=== PATIENT | female | born 1950 | race African-American/Black ===

== ENCOUNTER 2023-03-17 14:20 | Outpatient (NON) | payer MEDICARE, MEDICAID, SELFPAY ==
[2023-03-21 09:04] LABS: Fecal Fat, Ql Abnormal (Normal)
[2023-03-24 21:08] LABS: Pancreatic Elastase, Stool >500 mcg/g
== END 2023-03-17 14:21 | disposition home or self-care (01) ==
LOC: ANHLAB 14:20
PROVIDERS: PCP Nurse Practitioner Family; Visit Provider Nurse Practitioner Family
DX: R19.7 Diarrhea, unspecified (principal)
CPT/HCPCS: 82653; 82705; 87045; 87177; 87209; 87427; 87449

== ENCOUNTER 2023-10-18 14:52 | Inpatient (IN) | payer MEDICARE, MEDICAID, SELFPAY ==
[2023-10-18] VITALS (13 sets, daily range): BP systolic 86–126; BP diastolic 57–82; PULSE 75–88; RESP 14–24; TEMP 36.3–36.9; O2SAT 98–100; BMI 24.6
--- NOTE | ~2023-10-18 | CT_ITS ---
EXAMINATION: CT chest abdomen pelvis w con DATE: 10/19/2023 10:27 INDICATION: Abdominal distention. Severe anemia. TECHNIQUE: Computed tomography (CT) of the chest, abdomen, and pelvis was performed with 100 mL Omnip aque 350 intravenous contrast. Automated exposure control and iterative reconstruction technique were employed. The dose-length product was 555.27 mGy-cm. COMPARISON: None FINDINGS: CHEST CT: There is mild pulmonary edema. There is mild atelectasis bilaterally. Calcified right lung nodules an d calcified right hilar lymph nodes are consistent with old granulomatous disease. There are small pl eural effusions. The heart size is normal. There are coronary artery calcifications. There is a trace pericardial effusion. There is severe thoracic spondylosis. ABDOMEN/PELVIS CT: Calcifications in the liver and spleen are consistent with old granulomatous disease. The gallbladder is decompressed. Gallbladder wall thickening is seen, likely interstitial edema. The pancreas, adren al glands, and left kidney are normal. There is an 18 mm cyst in right kidney. There is diverticulosi s of the colon without evidence of diverticulitis. The appendix measures 7 mm in diameter. There is c alcified atherosclerosis of the aorta and many of the other arteries. There are no pathologically enl arged lymph nodes. There is trace ascites. There are old healed right rib fractures. There is moderat e lumbar spondylosis. IMPRESSION: 1. Mild pulmonary edema. 2. Small pleural effusions. 3. Appendiceal diameter of 7 mm, which is indeterminate for appendicitis and may be normal. Correlate with physical exam. Reviewed, dictated and finalized at location A. ICAL DENTAL TECHNICIAN IMPRESSION: 1. Mild pulmonary edema. 2. Small pleural effusions. 3. Appendiceal diameter of 7 mm, which is indeterminate for appendicitis and ma y be normal. Correlate with physical exam.
--- NOTE | ~2023-10-18 | XR_ITS ---
EXAMINATION: XR chest 1V portable Exam Date/Time: 10/18/2023 15:38 E TAILER HISTORY: weakness, low bp Comparison: None. RESULT: Lines, tubes, and devices: None. Lungs and pleura: Senescent changes, otherwise clear. Cardiomediastinal silhouette: Stable. Other: No acute osseous or upper abdominal finding. IMPRESSION: No acute cardiopulmonary process. Reviewed, dictated and finalized at location K. E TAILER
--- NOTE | 2023-10-18 15:16 | ECG_ITS ---
Measurements Intervals [place] Rate: 80 P: -5 [place]: 157 QRS: -4 QRSD: 89 T: 4 QT: 377 QTc: 435 Interpretive Statements SINUS RHYTHM NORMAL ECG NO PREVIOUS ECG AVAILABLE FOR COMPARISON Electronically Signed On 10-18-2023 18:29:28 [employer] CLEANER by Linus Talamantes M.D.
[2023-10-18] MEDS: SODIUM CHLORIDE 0.9% IV 1,000 ML 999 ML IV CONT ×2 (15:27→15:44)
[2023-10-18 15:29] LABS: Basophils Percent Auto 0.5 % (0.2-1.2); Eosinophils Absolute Auto 0.1 K/mm3 (0-0.3); Eosinophils Percent Auto 0.8 % (0-4.4); Immature Granulocyte Absolute 0.03 K/mm3 (0.00-0.031); Immature Granulocyte Percent A 0.5 % (0-0.5); Lymphocytes Absolute Auto 1.43 K/mm3 (0.9-3.2); Lymphocytes Percent Auto 24.1 % (18.3-44.2); Mean Corpuscular HGB Conc 26.6 g/dl (32-36); Mean Corpuscular Hemoglobin 20.7 pg (26-34); Monocytes Absolute Auto 0.8 K/mm3 (0.1-0.6); Neutrophils Absolute Auto 3.6 K/mm3 (1.3-6.7); Neutrophils Percent Auto 61.1 % (45.5-73.1); Nucleated Red Blood Cells Absolute Auto 0.1 K/mm3 (0.0-0.012); Platelet Count Result 341 k/mm3 (150-375); Red Blood Count 2.27 M/mm3 (4.2-5.4); Red Cell Distribution Width 18.4 % (11.5-14.5); White Blood Count 5.9 K/mm3 (4.5-10.0)
[2023-10-18 15:40] LABS: Alanine Aminotransferase 74 U/L (6-35); Albumin Level 3.9 g/dL (3.5-5.1); Alkaline Phosphatase 64 U/L (38-126); Anion Gap 9 mmol/L (8-16); Aspartate Amino Transferase 85 U/L (14-36); Bilirubin,Total 0.5 mg/dL (0.2-1.3); Blood Urea Nitrogen 19 mg/dL (7-17); Calcium 9.1 mg/dL (8.4-10.2); Carbon Dioxide 23 mmol/L (22-30); Chloride 107 mmol/L (98-107); Estimated CRCL calculation 46 ml/min; Estimated Glomerular Filt Rate > 60; Glucose 115 mg/dL (65-110); Potassium 3.6 mmol/L (3.4-5.0); Sodium 139 mmol/L (137-145)
[2023-10-18 15:43] LABS: Hematocrit 17.7 % (37.0-47.0); Hemoglobin 4.7 g/dL (12.0-15.0)
[2023-10-18 15:44] LABS: Anisocytosis 1+ (NORMAL); Hypochromasia 1+ (NORMAL); Ovalocytes 1+ (NORMAL); Platelet Estimate Adequate (Adequate); Schistocytes None Seen (NORMAL)
--- NOTE | 2023-10-18 15:46 | ED.GENADULT ---
HPI - General Adult General Chief complaint: Recheck/Abnormal Lab/Rx Stated complaint: low BP Time Seen by Provider: 10/18/23 15:31 History of Present Illness HPI narrative: 73-year-old female presents to the emergency department for evaluation of cough congestion and increased generalized weakness. Patient denies any current GI bleed denies any diarrhea. Patient states over the last few days she has had increased cough and congestion and generalized weakness. Patient describes lightheaded and dizziness. Patient does have a prior history GI bleed, patient is currently on Xarelto for prior history of CVA and atrial fibrillation. Related Data Home Medications Medication Instructions Recorded Confirmed lisinopril 10 mg tablet 10 mg PO DAILY 09/22/19 10/18/23 apixaban 2.5 mg tablet (Eliquis) 2.5 mg PO BID 03/12/23 10/18/23 atenolol 25 mg tablet 25 mg PO DAILY 03/12/23 10/18/23 vibegron 75 mg tablet (Gemtesa) 75 mg PO HS 03/12/23 10/18/23 colestipol 1 gram tablet 1 g PO 1700 10/18/23 10/18/23 pantoprazole 40 mg tablet,delayed 40 mg PO DAILY 10/18/23 10/18/23 release zolpidem 5 mg tablet 5 mg PO HS 10/18/23 10/18/23 Allergies Allergy/AdvReac Type Severity Reaction Status Date / Time No Known Allergies Allergy Verified 10/18/23 15:11 Review of Systems Review of Systems: All systems reviewed & are unremarkable except as noted in HPI and below PMFSH Past Medical History Medical History (Updated 10/18/23 @ 19:10 by Justino Cantu MD) Cerebrovascular accident (10/25/22) Residual right sided weakness. Chronic anticoagulation Hypertension Paroxysmal atrial fibrillation Social History Social History (Updated 10/18/23 @ 18:38 by Carmella Saldaña PA-C) Social History: Surrogate medical decision maker: Code status: Smoking status: Never smoker Alcohol intake: current Drinks per week: 3 Alcohol use details: socially Substance use: never Substance use type: does not use Do You Feel Safe in your Home?: Yes Lack of Transportation: No Lack of Food: Never True Current Housing: I Have Housing Concerned About Future Housing: No Difficulty Paying Gas/Electric Bills: No Difficulty Paying for Meds: No Currently Unemployed: No Education: High School Diploma/GED Difficulty w/ Childcare or Family Care: No Spiritual care concerns: No Exam Narrative: APPEARANCE: Well appearing, no pain, no distress, well-nourished. HEAD: normocephalic, atraumatic. EYES: PERRLA/EOMI, pale conjunctiva NOSE: Normal no drainage EARS:TMS clear with good light reflex. THROAT: Pharynx clear, no exudate. NECK: Supple. No adenopathy, no masses. RESPIRATORY: Airway patent, respirations nonlabored. Clear to auscultation bilaterally, no rales, rhonchi, wheezing. CARDIOVASCULAR: Regular rate and rhythm without murmurs rubs or gallops. ABDOMINAL: Soft, nontender, nondistended, normal bowel sounds Rectal exam: Hemoccult negative MUSCULOSKELETAL: Moves all extremities. Strength/ROM intact, No edema, No calf tenderness. NEURO: Alert. Cranial nerves II through XII intact. Good gait. Good coordination SKIN: Pale conjunctivae Course Course Emergency Course: Patient was at bedded for transfusion and anemia workup Vital Signs Vital signs: Vital Signs Temperature 97.7 F 10/18/23 14:57 Pulse Rate 88 10/18/23 14:57 Respiratory Rate 16 10/18/23 14:57 Blood Pressure 86/57 L 10/18/23 14:57 Pulse Oximetry 98 10/18/23 14:57 Temperature 97.4 F L 10/18/23 19:03 Pulse Rate 81 10/18/23 19:03 Respiratory Rate 14 10/18/23 19:03 Blood Pressure 126/69 10/18/23 19:03 Pulse Oximetry 100 10/18/23 19:03 Medical Decision Making [facility] Narrative Medical decision making narrative: 73-year-old female presenting ED for evaluation increased generalized weakness cough and lightheaded and dizziness. Patient was afebrile with no leukocytosis but patient did have a hemoglobin of 4.7. Pa
[2023-10-18 15:54] LABS: Immature Reticulocyte Fraction 4.6 % (3.0-15.9); Reticulocyte Hemoglobin Conten 13.9 pg (28.2-35.7); Reticulocyte Percent 1.26 % (0.7-4.3); Reticulocytes Absolute 0.03 M/mm3 (0.02-0.1)
[2023-10-18 16:07] LABS: Iron 27 ug/dL (37-170)
[2023-10-18 16:16] LABS: Percent Iron Saturation 5 % (20-50)
[2023-10-18 16:41] LABS: Influenza A QL RT-PCR Negative (Negative); Influenza B QL RT-PCR Negative (Negative); RSV RNA, RT-PCR Negative (Negative); SARS-CoV-2 RNA PCR Negative (Negative)
[2023-10-18 16:42] LABS: Ferritin 4.21 ng/mL (11.1-264)
[2023-10-18] MEDS: SODIUM CHLORIDE 0.9% IV 250 ML 30 ML IV CONT (16:55)
[2023-10-18] MEDS: TUBING, BLOOD SET 1 EACH XX (16:56)
[2023-10-18 17:13] LABS: Folic Acid 17.3 ng/mL (2.76->20)
--- NOTE | 2023-10-18 18:31 | ADMGEN ---
This patient, Kaye Bolaños, was admitted to IMU Room 201-01. Patient/family oriented to hospital policies and general routines including ID bracelet, bed and alarms, visiting hours, pain management, procedures, bathroom and other care routines, personal items, smoking policy, room service/diet, and visiting hours. Information on how to activate the Rapid Response Team has been discussed. Patient/Family are encouraged to report perceived risks to care and to ask questions if they do not understand what they are told or what they should do.
--- NOTE | 2023-10-18 18:32 | PM.IMHP ---
H&P: HPI History of Present Illness Date/Time: 10/18/23 19:30 Chief Complaint: Dizziness and low blood pressure. Narrative: This is a 73-year-old female with history of stroke, hypertension, and paroxysmal atrial fibrillation on anticoagulation who presented to the emergency department for evaluation of dizziness and low blood pressure. The patient provides the following history. She has not been feeling well for couple of weeks with vague symptoms including fatigue, generalized weakness, dry cough, and dizziness. Today she took her blood pressure and reports that it was in the 80s systolic and she came in for evaluation. On arrival to the ED her blood pressure was 86/57. Labs were significant for hemoglobin and hematocrit 4.7 and 17.7% respectively. Stool was Hemoccult negative on rectal exam per ED physician. Chest x-ray showed no acute findings and she tested negative for influenza, RSV, and COVID. 2 units packed red blood cells were ordered and she is being admitted in this setting for further workup and transfusion. With further questioning she mentions that she was hospitalized at [facility] a couple of months ago with dark stools at which time she had upper and lower endoscopy which were apparently unrevealing. She had previously been on Eliquis and was transition to Xarelto and her stool seemed to have cleared up. She has not noticed any blood in her stool and she specifically denies epigastric and abdominal pain, bloating, belching, hematemesis, melena, hematochezia, and hematuria. She also denies NSAID use. Review of Systems Review of Systems: Twelve systems were reviewed. No syncope. She denies fever, chills, sweats, sinus congestion, and sore throat. Her cough is dry and nonproductive. No chest or pleuritic pain. Mild shortness of breath with activity. Except as documented, all other systems were reviewed and are negative. [facility] Past Medical History Medical History (Updated 10/18/23 @ 23:41 by Carmella Saldaña PA-C) Arthritis Cerebrovascular accident (10/25/22) Mild right sided weakness. Chronic anticoagulation Hypertension Irritable bowel syndrome Obstructive sleep apnea Does not wear CPAP. Paroxysmal atrial fibrillation Surgical History Surgical History (Updated 10/18/23 @ 23:41 by Carmella Saldaña PA-C) History of cataract extraction History of colonoscopy History of esophagogastroduodenoscopy Family History Family History (Updated 10/18/23 @ 23:41 by Carmella Saldaña PA-C) Other Family history non-contributory Social History Social History (Updated 10/18/23 @ 22:49 by Carmella Saldaña PA-C) Social History: Surrogate medical decision maker: Galen Shine, son. Code status: Full code. Smoking status: Never smoker Alcohol intake: current Drinks per week: 3 Alcohol use details: socially Substance use: never Substance use type: does not use Do You Feel Safe in your Home?: Yes Lack of Transportation: No Lack of Food: Never True Current Housing: I Have Housing Concerned About Future Housing: No Difficulty Paying Gas/Electric Bills: No Difficulty Paying for Meds: No Currently Unemployed: No Education: High School Diploma/GED Difficulty w/ Childcare or Family Care: No Spiritual care concerns: No Meds Home Medications and Allergies Home Medications Medication Instructions Recorded Confirmed Type lisinopril 10 mg tablet 10 mg PO DAILY 09/22/19 10/18/23 History apixaban 2.5 mg tablet (Eliquis) 2.5 mg PO BID 03/12/23 10/18/23 History atenolol 25 mg tablet 25 mg PO DAILY 03/12/23 10/18/23 History colestipol 1 gram tablet 1 g PO 1700 10/18/23 10/18/23 History pantoprazole 40 mg tablet,delayed 40 mg PO DAILY 10/18/23 10/18/23 History release vibegron 75 mg tablet (Gemtesa) 75 mg PO HS 10/18/23 10/18/23 History zolpidem 5 mg tablet 5 mg PO HS 10/18/23 10/18/23 History Allergies Allergy/AdvReac Type Severity Reaction Status Riaz
[2023-10-18] MEDS: TUBING, BLOOD PLUM PUMP TUBING 1 EACH XX (19:05)
[2023-10-18] MEDS: SODIUM CHLORIDE 0.9% IV 250 ML 30 ML (19:05)
[2023-10-18 20:26] LABS: NT Pro B Type Natriuretic Pept 1700 pg/mL (19.9-100)
[2023-10-18 23:18] LABS: Hematocrit 21.6 % (37.0-47.0)
[2023-10-18 23:24] LABS: Hemoglobin 6.6 g/dL (12.0-15.0)
[2023-10-18 23:27] LABS: Lactate Dehydrogenase 152 U/L (120-246)
[2023-10-19] VITALS (25 sets, daily range): BP systolic 102–152; BP diastolic 59–94; PULSE 72–132; RESP 18–22; TEMP 36.3–37.2; O2SAT 92–100
--- NOTE | 2023-10-19 | ECHO_ITS ---
Patient Info Name: Kaye Bolaños Age: 73 years : 1950 Gender: Female Ht: 67 in Wt: 155 lbs BSA: 1.83 m2 HR: 125 bpm BP: 121 / 88 mmHg Heart Rhythm: Atrial Fibrillation Technical Quality: Fair Exam Date: 10/19/2023 2:00 PM Exam Location: Echo Lab Patient Status: Outpatient Admit Date: 10/18/2023 Staff Ordering Physician: Shirley Soriano APRN Ticket Collector Or Usher: Attending Provider: Nicholas Styles MD Referring Physician: Bo HUIZAR; Exam Type: CA echo doppler color flow Study Info Indications I50.20 - Unspecified systolic (congestive) heart failure Complete two-dimensional, color flow and Doppler transthoracic echocardiogram is performed. Summary 1. Complete two-dimensional, color flow and Doppler transthoracic echocardiogram is performed. 2. Mild left ventricular hypertrophy with vigorous, hyperdynamic systolic function. 3. Severely dilated left atrium. 4. Trivial MR. 5. Atrial fibrillation. Left Ventricle Left ventricular chamber dimension is normal. Left ventricular systolic function is hyperdynamic, estimated at >70%. There is mild concentric increased left ventricular wall thickness. The left ventricular diastolic function is indeterminate. Right Ventricle Right ventricular chamber dimension is normal. Left Atria Left atrial chamber dimension is severely enlarged. Right Atria Right atrial chamber dimension is normal. Aortic Valve The aortic valve is normal. Pulmonic Valve The pulmonic valve is not well visualized. Mitral Valve The mitral valve has normal leaflets. There is trace mitral valve regurgitation. The mitral valve annulus is mildly calcified. Tricuspid Valve The tricuspid valve leaflets are normal. There is trace tricuspid valve regurgitation. Pericardium/Pleural The pericardium appears normal. Aorta The aortic root size at the sinus of Valsalva is normal. Left Ventricular Outflow Tract Name Value Normal LVOT 2D LVOT Diameter 2.0 cm LVOT Doppler LVOT Peak Gradient 2 mmHg LVOT Mean Gradient 1 mmHg LVOT VTI 24 cm LVOT VTI/AV VTI Ratio 1.1 LVOT Stroke Volume 73 ml LVOT CO 3.7 l/min LVOT CI 2.0 l/min/m2 Pulmonic Valve Name Value Normal PV Doppler PV Peak Gradient 3 mmHg Tricuspid Valve Name Value Normal TV Regurgitation Doppler TR Peak Velocity 262 cm/s TR Peak Gradient 27 mmHg Aortic Valve Name
[2023-10-19] MEDS: ZOLPIDEM TARTRATE (*CRX) 5 MG TABLET PO ×2 (00:34→20:34)
[2023-10-19 00:40] LABS: Appearance Urine Clear (Clear); Bilirubin Urine Negative (Negative); Blood Urine Negative (Negative); Color Urine Yellow (Yellow); Glucose Urine UA Negative (Negative); Ketones Urine Trace mg/dL (Negative); Leukocyte Esterase Ur Negative LEU/UL (Negative); Nitrate Urine Negative (Negative); Protein Urine Negative (Negative); Specific Grav Ur 1.024 (1.001-1.035); pH Urine 5.5 (5.0-9.0)
[2023-10-19 01:03] LABS: Add Urine Microscopic? NO
[2023-10-19] MEDS: COLESTIPOL HCL 1 GM TABLET PO ×2 (03:59→17:08)
[2023-10-19] MEDS: SODIUM CHLORIDE 0.9% IV 250 ML 30 ML IV CONT (04:02)
[2023-10-19] MEDS: TUBING, BLOOD PLUM PUMP TUBING 1 EACH XX (04:02)
--- NOTE | 2023-10-19 08:57 | PM.IMPN ---
Subjective Date/time seen: 10/19/23 08:57 Interval history: No acute overnight events. Objective Data Vital Signs Vital Signs: Vital Signs - 24 hr 10/18/23 14:57 10/18/23 16:48 10/18/23 17:06 Temperature 97.7 F 97.6 F 97.4 F L Pulse Rate 88 84 78 Respiratory Rate 16 18 14 Blood Pressure 86/57 L 104/76 103/75 Pulse Oximetry 98 99 100 Oxygen Delivery 10/18/23 18:06 10/18/23 18:17 10/18/23 19:03 Temperature 97.8 F 97.4 F L Pulse Rate 79 76 81 Respiratory Rate 22 H 20 14 Blood Pressure 109/82 118/75 126/69 Pulse Oximetry 99 99 100 Oxygen Delivery 10/18/23 18:39 10/18/23 19:20 10/18/23 20:20 Temperature 98.4 F 97.8 F 97.9 F Pulse Rate 80 77 82 Respiratory Rate 24 H 14 18 Blood Pressure 119/70 118/82 111/70 Pulse Oximetry 100 100 100 Oxygen Delivery 10/18/23 20:52 10/18/23 20:00 10/18/23 20:00 Temperature 97.9 F Pulse Rate 82 82 75 Respiratory Rate 18 18 Blood Pressure 110/68 Pulse Oximetry 100 100 Oxygen Delivery Room Air 10/18/23 23:43 10/19/23 00:00 10/18/23 22:00 Temperature 97.9 F Pulse Rate 82 82 76 Respiratory Rate 18 18 Blood Pressure 110/68 Pulse Oximetry 100 100 Oxygen Delivery Room Air 10/19/23 00:00 10/19/23 02:00 10/19/23 03:50 Temperature 97.9 F Pulse Rate 73 73 78 Respiratory Rate 18 Blood Pressure 138/77 Pulse Oximetry 92 Oxygen Delivery 10/19/23 04:00 10/19/23 04:07 10/19/23 04:57 Temperature 98.3 F 97.9 F Pulse Rate 78 73 82 Respiratory Rate 18 20 18 Blood Pressure 140/79 140/79 Pulse Oximetry 92 97 97 Oxygen Delivery Room Air 10/19/23 05:07 10/19/23 04:00 10/19/23 06:00 Temperature 97.3 F L Pulse Rate 82 73 72 Respiratory Rate 18 Blood Pressure 136/70 Pulse Oximetry 97 Oxygen Delivery 10/19/23 07:35 Temperature 98.2 F Pulse Rate 74 Respiratory Rate 20 Blood Pressure 152/91 H Pulse Oximetry 97 Oxygen Delivery Intake/Output Intake/Output: Intake & Output 10/16/23 10/17/23 10/18/23 10/19/23 23:59 23:59 23:59 23:59 Intake Total 2900 900 Output Total 650 Balance 2900 250 Meds/Results Medications: Active Medications Generic Name Dose Route Start Last Admin Trade Name Freq PRN Reason Stop Dose Admin Acetaminophen 650 mg 10/18/23 22:53 Acetaminophen 325 Mg Tablet PO Q6H PRN Mild Pain (1-3) or Fever Atenolol 25 mg 10/19/23 09:00 Atenolol 25 Mg Tablet PO DAILY [facility] Colestipol HCl 1 gm 10/19/23 17:00 Colestipol Hcl 1 Gm Tablet PO 1700 [facility] Ferrous Sulfate 325 mg 10/19/23 21:00 Ferrous Sulfate [address] PO BID [facility] Iron Sucrose 500 mg/ Sodium 275 mls @ 79 mls/hr 10/19/23 09:15 Chloride IVPB 10/19/23 12:43 ONCE ONE Miscellaneous Information 1 each 10/19/23 00:01 Med Rec Order Clarification XX 11/18/23 00:00 CLARIFY [facility] Non-Formulary Medication 75 mg 10/19/23 21:00 Vibegron [Gemtesa] PO 11/18/23 20:59 HS [facility] Pantoprazole Sodium 40 mg 10/19/23 09:00 Pantoprazole 40 Mg Tablet PO BID [facility] Zolpidem Tartrate 5 mg 10/18/23 23:10 10/19/23 00:34 Zolpidem Tartrate (*Crx) 5 Mg Tablet PO 5 mg HS [facility] Administration Radiology Results: ITS Impressions Chest X-Ray 10/18/23 15:44 IMPRESSION: No acute cardiopulmonary process. Labs Labs: Laboratory Results - last 24 hr 10/18/23 10/18/23 10/18/23 15:24 15:24 15:54 WBC 5.9 RBC 2.27 L Hgb 4.7 L* Hct 17.7 L* MCV 78.0 L MCH 20.7 L MCHC 26.6 L RDW 18.4 H Plt Count 341 MPV 11.0 H Immature Gran % (Auto) 0.5 Neut % (Auto) 61.1 Lymph % (Auto) 24.1 [place] % (Auto) 13.0 H Eos % (Auto) 0.8 Baso % (Auto) 0.5 Lymph # (Auto) 1.43 [place] # (Auto) 0.8 H Eos # (Auto) 0.1 Baso # (Auto) 0.0 Abs Immat Gran (auto) 0.03 Absolute Neuts (auto) 3.6 Absolute Nucleated RBC 0.1 H Nucleated RBC % 1.0 H Platelet Estimate Adequate Hypoc
--- NOTE | 2023-10-19 08:59 | P.PNIM_ITS ---
Progress Note: A&P Assessment and Plan (1) Anemia: Code(s): D64.9 - Anemia, unspecified Status: Acute (2) Elevated LFTs: Code(s): R79.89 - Other specified abnormal findings of blood chemistry Status: Acute (3) Paroxysmal atrial fibrillation: Code(s): I48.0 - Paroxysmal atrial fibrillation Status: Acute (4) Hypertension: Code(s): I10 - Essential (primary) hypertension Status: Acute (5) Congestive heart failure: Code(s): I50.9 - Heart failure, unspecified Status: Acute (6) Iron deficiency anemia: Code(s): D50.9 - Iron deficiency anemia, unspecified Status: Acute Plan Anemia * Does not appear to be active bleed but patient does take blood thinners for AFIB and TIA and previous HX of GI bleed * last colonoscopy 03/2023 IBS * hgb 4.6 POA * 3 units PRBC transfused now 8.0 * H&H q6hr * transfused 500mg Iron * PPI b.i.d. * Transfuse hgb <7.0 * GI and Hematology consulted Microcytic iron deficiency anemia * Iron panel * Iron TID * Hematology consult * In 500 mg IV * congestive heart failure New onset * Type to be determined following echocardiogram * BNP 1700 * chest x-ray: Pulmonary edema/bilateral small pleural effusion * No BLE edema but patient reports recent 10 LB weight gain * Likely secondary to patient's 3 units of PRBCs and IV fluids * 20 IV push Lasix given patient has had mild BP's will increase as BP can tolerate * cardiology consulted * monitor renal function during diuresis * previous echocardiogram results or if applicable: None at this facility but does follow with Dr. Hart with [facility] * echocardiogram pending * EKG Pending * Lipid panel, TSH, liver function test. * Optimize Pablo inhibitors, beta-blockers, ARNI * Daily weight. * monitor electrolytes during diuresis K+ >4.0/Mag >2.0 Paroxysmal AFIB * was on xarelto switched to eliquis for AFIB and previous CVA due to GI bleed with xarelto * Continuous cardiac monitoring * AC held due to anemia * cardiology consulted * HR was controlled on admission but having episodes of rated in the 120's switched her atenolol to metoprolol b.i.d. 25 mg Transaminitis * Mildly elevated * US pending * hep panel pending HTN * Soft on admission * Switch patient's atenolol to metoprolol 25 mg b.i.d. * BP per unit protocol hypokalemia * 3.1 * Initiating Lasix will need to add daily dose * On continuous cardiac monitoring * PVCs noted with sinus tach sinus rhythm on admission * Magnesium 1.8 Code status: Full code per patient DVT prophylaxis: SCD's (Anemia) Stress ulcer prophylaxis: Protonix 40 BID PT/OT notes: Ambulatory Disposition: Patient continues admission to IMU for further evaluation anemia with new onset CHF, GI, Hematology, Cardiology consultation for further recommendations patient does have history of atrial fibrillation and CVA was on a AC however will need to hold due to severe anemia. Patient is ambulatory on her own and when medically stable will return. Time Spent With Patient Time with patient: 25 - 35 minutes Subjective Date/time seen: 10/19/23 08:59 Interval history: H&P (Medical report) Chief Complaint: Dizziness and low blood pressure. Narrative: This is a 73-year-old female with history of stroke, hypertension, and paroxysmal atrial fibrillation on anticoagulation who presented to the emergency department for evaluation
--- NOTE | 2023-10-19 08:59 | PM.IMPN ---
Progress Note: A&P Assessment and Plan (1) Anemia: Code(s): D64.9 - Anemia, unspecified Status: Acute (2) Elevated LFTs: Code(s): R79.89 - Other specified abnormal findings of blood chemistry Status: Acute (3) Paroxysmal atrial fibrillation: Code(s): I48.0 - Paroxysmal atrial fibrillation Status: Acute (4) Hypertension: Code(s): I10 - Essential (primary) hypertension Status: Acute (5) Congestive heart failure: Code(s): I50.9 - Heart failure, unspecified Status: Acute (6) Iron deficiency anemia: Code(s): D50.9 - Iron deficiency anemia, unspecified Status: Acute Plan Anemia Does not appear to be active bleed but patient does take blood thinners for AFIB and TIA and previous HX of GI bleed last colonoscopy 03/2023 IBS hgb 4.6 POA 3 units PRBC transfused now 8.0 H&H q6hr transfused 500mg Iron PPI b.i.d. Transfuse hgb <7.0 GI and Hematology consulted Microcytic iron deficiency anemia Iron panel Iron TID Hematology consult In 500 mg IV congestive heart failure New onset Type to be determined following echocardiogram BNP 1700 chest x-ray: Pulmonary edema/bilateral small pleural effusion No BLE edema but patient reports recent 10 LB weight gain Likely secondary to patient's 3 units of PRBCs and IV fluids 20 IV push Lasix given patient has had mild BP's will increase as BP can tolerate cardiology consulted monitor renal function during diuresis previous echocardiogram results or if applicable: None at this facility but does follow with Dr. Hart with [facility] echocardiogram pending EKG Pending Lipid panel, TSH, liver function test. Optimize Pablo inhibitors, beta-blockers, ARNI Daily weight. monitor electrolytes during diuresis K+ >4.0/Mag >2.0 Paroxysmal AFIB was on xarelto switched to eliquis for AFIB and previous CVA due to GI bleed with xarelto Continuous cardiac monitoring AC held due to anemia cardiology consulted HR was controlled on admission but having episodes of rated in the 120's switched her atenolol to metoprolol b.i.d. 25 mg Transaminitis Mildly elevated US pending hep panel pending HTN Soft on admission Switch patient's atenolol to metoprolol 25 mg b.i.d. BP per unit protocol hypokalemia 3.1 Initiating Lasix will need to add daily dose On continuous cardiac monitoring PVCs noted with sinus tach sinus rhythm on admission Magnesium 1.8 Code status: Full code per patient DVT prophylaxis: SCD's (Anemia) Stress ulcer prophylaxis: Protonix 40 BID PT/OT notes: Ambulatory Disposition: Patient continues admission to IMU for further evaluation anemia with new onset CHF, GI, Hematology, Cardiology consultation for further recommendations patient does have history of atrial fibrillation and CVA was on a AC however will need to hold due to severe anemia. Patient is ambulatory on her own and when medically stable will return. Time Spent With Patient Time with patient: 25 - 35 minutes Subjective Date/time seen: 10/19/23 08:59 Interval history: H&P (Medical report) Chief Complaint: Dizziness and low blood pressure. Narrative: This is a 73-year-old female with history of stroke, hypertension, and paroxysmal atrial fibrillation on anticoagulation who presented to the emergency department for evaluation of dizziness and low blood pressure. The patient provides the following history. She has not been feeling well for couple of weeks with vague symptoms including fatigue, generalized weakness, dry cough, and dizziness. Today she took her blood pressure and reports that it was in the 80s systolic and she came in for evaluation. On arrival to the ED her blood pressure was 86/57. Labs were significant for hemoglobin and hematocrit 4.7 and 17.7% respectively. Stool was Hemoccult negative on rectal exam per ED physician. Chest x-ray showed no acute findings and s
[2023-10-19] MEDS: PANTOPRAZOLE 40 MG TABLET PO ×2 (09:22→17:05)
[2023-10-19] MEDS: atenoloL 25 MG TABLET PO (09:23)
[2023-10-19 09:45] LABS: Hematocrit 25.4 % (37.0-47.0); Mean Corpuscular HGB Conc 31.5 g/dl (32-36); Mean Corpuscular Hemoglobin 25.2 pg (26-34); Mean Corpuscular Volume 80.1 fl (80-100); Mean Platelet Volume 11.1 fl (7.4-10.4); Platelet Count Result 224 k/mm3 (150-375); Red Blood Count 3.17 M/mm3 (4.2-5.4); Red Cell Distribution Width 17.2 % (11.5-14.5); White Blood Count 6.4 K/mm3 (4.5-10.0)
[2023-10-19 10:23] LABS: Alanine Aminotransferase 57 U/L (6-35); Albumin Level 3.3 g/dL (3.5-5.1); Alkaline Phosphatase 54 U/L (38-126); Anion Gap 6 mmol/L (8-16); Aspartate Amino Transferase 66 U/L (14-36); Bilirubin,Total 0.8 mg/dL (0.2-1.3); Blood Urea Nitrogen 13 mg/dL (7-17); Calcium 8.7 mg/dL (8.4-10.2); Carbon Dioxide 22 mmol/L (22-30); Chloride 109 mmol/L (98-107); Estimated CRCL calculation 60 ml/min; Estimated Glomerular Filt Rate > 60; Glucose 130 mg/dL (65-110); Magnesium 1.8 mg/dL (1.6-2.3); Potassium 3.1 mmol/L (3.4-5.0); Sodium 137 mmol/L (137-145)
[2023-10-19] MEDS: IRON SUCROSE COMPLEX 500 MG in SODIUM CHLORIDE 0.9% IV 250 ML 79 MG IVPB (10:34)
[2023-10-19] MEDS: BENZONATATE 100 MG CAPSULE 200 MG PO ×2 (10:40→17:05)
--- NOTE | 2023-10-19 11:25 | PC.NURSE ---
Nurse noted patient HR to be increased to 130s and sustaining. Nurse called [facility] and notified her of changes. New medication, new test, and consult were ordered for patient. Patient denies feeling symptomatic.
--- NOTE | 2023-10-19 11:59 | ECG_ITS ---
Measurements Intervals Anthony Rate: 127 P: [place]: 0 QRS: -9 QRSD: 82 T: 17 QT: 302 QTc: 440 Interpretive Statements ATRIAL FIBRILLATION WITH RAPID VENTRICULAR RESPONSE LOW-VOLTAGE QRS IN THE LIMB LEADS ABNORMAL ECG COMPARED TO ECG 10/18/2023 15:24:36 ATRIAL FIBRILLATION NOW PRESENT Electronically Signed On 10-19-2023 18:32:51 [employer]GER by Roger Mcqueen M.D.
[2023-10-19] MEDS: METOPROLOL TARTRATE 25 MG TABLET PO (12:09)
[2023-10-19] MEDS: FUROSEMIDE INJ 40 MG/4 ML VIAL 20 MG IV PUSH (12:09)
[2023-10-19 12:23] LABS: Hepatitis B Surface Antigen Negative (Negative)
[2023-10-19 12:29] LABS: HAV RESULT Negative (Negative); Hepatitis B Core IgM Result Negative (Negative)
--- NOTE | 2023-10-19 12:51 | PDONCCN ---
HPI - Date of Consult Date/Time: 10/19/23 12:51 Requesting Physician: Nicholas Styles MD Primary Care Provider: Arianna Saldaña, WELDING MACHINE [employer]ATOR [employer] - Consult Narrative Reason for consult: Anemia Narrative: Kaye Bolaños is a 73 year old female with a past medical history of HF, Afib, CVA, HTN, who was admitted for dizziness and low BP. She was overall feeling fatigued, weak, and reports a cough. This has been ongoing for 3-4 weeks and she was feeling very fatigued even after doing the dishes or making her bed. She reports a lifetime of anemia. She is not taking oral pills previously. She had a GI bleed after she was put on Xarelto for Afib last year, and since has switched to Eliquis. She denies any overt blood loss. Reports normal stools. Reports a regular diet. Denies any past blood donations. Denies any stomach surgeries. Presenting Hgb was 4.7. She has received 3 units of PRBCs. She is currently getting an iron infusion. Review of Systems - Review of Systems All systems reviewed & are unremarkable except as noted in HPI and bel - Neurologic Reports weakness [facility] Medical History: Medical History (Last Updated 10/19/23 @ 08:59 by Ericka Grant MD) Arthritis Cerebrovascular accident Onset Date: 10/25/22 Mild right sided weakness. Chronic anticoagulation Hypertension Irritable bowel syndrome Obstructive sleep apnea Does not wear CPAP. Paroxysmal atrial fibrillation Surgical History: Surgical History (Last Updated 10/18/23 @ 23:41 by Carmella Saldaña PA-C) History of cataract extraction History of colonoscopy History of esophagogastroduodenoscopy Family History: Family History (Last Reviewed 10/19/23 @ 03:04 by Basilia Rico RN) Mother Family history non-contributory Father Traffic vehicular accidental Sibling Breast cancer - Social History Social History: Social History (Last Updated 10/18/23 @ 22:49 by Carmella Saldaña PA-C) Alcohol Use: Alcohol intake: current Drinks per week: 3 Alcohol use details: socially Substance Use: Substance use: never Substance use type: does not use Others: Spiritual care concerns: No Smoking Status: Smoking status: Never smoker Social Determinants of Health: Do You Feel Safe in your Home?: Yes Has the Lack of Transportation Kept You From Medical Appointments or From Getting Medications?: No Within the Past 12 Months, Were You Worried Whether Your Food Would Run Out Before You Got Money to Buy More?: Never True What is Your Housing Situation Today?: I Have Housing Are You Worried That in the Next 2 Months, You May Not Have Your Own Housing to Live In?: No Do You Have Trouble Paying Your Heating Or Electricity Bill?: No Do You Have Trouble Paying For Medicines?: No Are You Currently Unemployed and Looking for Work?: No Highest Level of Education Completed: High School Diploma/GED Do You Have Trouble With Childcare or the Care of a Family Member?: No Exam - General Pt is sitting on the side of the bed, in no acute distress. - Vital Signs Vital Signs - 24 hr 10/18/23 14:57 10/18/23 16:48 10/18/23 17:06 Temperature 36.5 C 36.4 C 36.3 C L Pulse Rate 88 84 78 Respiratory Rate 16 18 14 Blood Pressure 86/57 L 104/76 103/75 Pulse Oximetry 98 99 100 Oxygen Delivery 10/18/23 18:06 10/18/23 18:17 10/18/23 19:03 Temperature 36.6 C 36.3 C L Pulse Rate 79 76 81 Respiratory Rate 22 H 20 14 Blood Pressure 109/82 118/75 126/69 Pulse Oximetry 99 99 100 Oxygen Delivery 10/18/23 18:39 10/18/23 19:20 10/18/23 20:20 Temperature 36.9 C 36.6 C 36.6 C Pulse Rate 80 77 82 Respiratory Rate 24 H 14 18 Blood Pressure 119/70 118/82 111/70 Pulse Oximetry 100 100 100 Oxygen Delivery 10/18/23 20:52 10/18/23 20:00 10/18/23 20:00 Temperature 36.6 C Pulse Rate 82 82 75 Respiratory Rate 18 18 Blood Pressure 110/68 Pulse Oximetry 100 100 Ox
[2023-10-19] MEDS: POTASSIUM CHLORIDE 20 MEQ ER TABLET 40 MEQ PO (13:01)
[2023-10-19 13:38] LABS: Hepatitis C Virus Antibody Reactive (Negative)
[2023-10-19] MEDS: POTASSIUM CHLORIDE INJ 40 MEQ in SODIUM CHLORIDE 0.9% IV 500 ML 130 MEQ IVPB (14:25)
[2023-10-19] MEDS: SODIUM CHLORIDE 0.9% IV 500 ML 10 ML (14:30)
[2023-10-19] MEDS: ACETAMINOPHEN 325 MG TABLET 650 MG PO (15:26)
--- NOTE | 2023-10-19 15:59 | PM.CNCAR ---
Assessment and Plan Assessment and plan (1) Paroxysmal atrial fibrillation: Code(s): I48.0 - Paroxysmal atrial fibrillation Status: Acute Plan This is a 73-year-old lady with a history of paroxysmal atrial fibrillation. In the setting of profound anemia she was hospitalized here and did have an episode of AF with RVR that was hemodynamically well tolerated earlier today. Her echocardiogram last year from her other button buttonhole marker apparently was essentially unremarkable. At this time I told the patient and her family that anticoagulation has been discontinued and should not be restarted. I am going to transition her from the beta-aylin to a low-dose of sotalol in hopes of maintaining sinus rhythm. She is in sinus rhythm currently and would be more stable if we could prevent these paroxysms of atrial fibrillation from occurring. She is frail and anemic so I will prescribe a low dose of sotalol at this time. Will follow her with you during this hospitalization but at this time I would not resume anticoagulation Roger Mcqueen MD [facility] History of Present Illness History of Present Illness Consult date/time: 10/19/23 15:59 Reason For Visit: Anemia Narrative: This is a 73-year-old lady I am seeing this afternoon with request of the hospitalist for assistance with the management of atrial fibrillation. The consult order also indicates was consult for pleural effusions. She is unknown to me prior to this encounter a she is a pleasant lady but appears in my pin to be an unreliable historian and is somewhat confused at times during history. Fortunately there are family members in the room to assist with this. She came to the emergency room here at [facility] with complaints of generalized weakness and coughing which has been going on for the last several weeks. She was found in the emergency room BP profoundly anemic with a hemoglobin of just over 4 g with microcytic indices and very low iron levels. She was transfused packed red blood cells and also given intravenous iron. She does not report any obvious overt bleeding at this time she says that a couple of months ago she was hospitalized and evaluated in [place] with some dark black stools and she was found to be anemic. By her description GI evaluation was unrevealing at that time. She has a cardiac history compatible with atrial fibrillation for which she sees a button buttonhole marker elsewhere. She was treated with a 10 will wall and anticoagulation according to the records at times she has been both on Xarelto and and on apixaban as well. There is significant confusion at this time is to which drug she is taking at the time of this admission but obviously because of the profound anemia they are discontinued. When she came to the hospital she was in sinus rhythm and she had an episode of AFib with RVR earlier this morning with which she was asymptomatic she was given some oral metoprolol and is back in sinus rhythm again now. There are records from her outside button buttonhole marker that demonstrated her evaluation included an echocardiogram last year that was essentially unremarkable. There is no other cardiac history besides the atrial fibrillation that anyone in the family can recall. Review of Systems Constitutional: Constitutional: Reports lethargy Eyes: Eyes: Reports no additional eye complaints ENT: Reports system reviewed and no additional complaints, except as documented Cardiovascular: Cardiovascular: Reports no additional cardiovascular complaints Respiratory: Respiratory: Reports no additional respiratory complaints Gastrointestinal: Comments: Recent history of dark stools as detailed above Musculoskeletal: Musculoskeletal: Reports no additional musculoskeletal complaints Integumentary/Breasts: Skin/Breast: Reports system reviewed and no additional complaints, except as docu Neurologic: Comments: Alert and oriented, some of the patient's answers to questions are sinai
--- NOTE | 2023-10-19 16:13 | WPDGICN ---
Assessment and Plan Assessment and plan (1) Iron deficiency anemia: Code(s): D50.9 - Iron deficiency anemia, unspecified Status: Acute Assessment and Plan: had recent colonoscopy at another institution no overt gib with negative occult blood in stool will proceed with egd, assess for avm or anything that could explain anemia hematology on board cardiology discontinued blood thinner (2) Congestive heart failure: Code(s): I50.9 - Heart failure, unspecified Status: Acute Assessment and Plan: exacerbated by anemia (3) Chronic anticoagulation: Code(s): Z79.01 - terminal gauger (current) use of anticoagulants Status: Acute Assessment and Plan: on hold now (4) Paroxysmal atrial fibrillation: Code(s): I48.0 - Paroxysmal atrial fibrillation Status: Acute Assessment and Plan: by cardiology GI Consult Note Consult date/time: 10/19/23 16:13 Reason for consult: symptomatic anemia. HPI: Kaye Bolaños is a 73 year old female with history of stroke, hypertension, and paroxysmal atrial fibrillation on anticoagulation (most recently on eliquis) who came to the emergency department for evaluation of dizziness and low blood pressure. She noted progressive weakness and fatigue for last 2 weeks, her BP at home was low and came to ER. Labs were significant for hemoglobin and hematocrit 4.7 and 17.7% respectively. Stool was Hemoccult negative on rectal exam. Chest x-ray showed no acute findings, influenza, RSV, and COVID negative. Blood thinner was discontinued and she received 2 units packed red blood cells. She was hospitalized at [facility] a couple of months ago when she had occult blood in stool, colonoscopy unremarkable per patient and family members. Denies melena or weight loss. Review of Systems Constitutional: Constitutional: Reports fatigue and Reports lethargy Eyes: Eyes: Denies blurry vision ENT: Reports Normal hearing present Cardiovascular: Cardiovascular: Denies chest pain Gastrointestinal: Gastrointestinal: Denies abdominal pain Genitourinary: Genitourinary: Denies urinary urgency Musculoskeletal: Musculoskeletal: Denies neck pain Integumentary/Breasts: Skin/Breast: Denies rash Neurologic: Denies Abnormal speech present Psychiatric: Psychiatric: Denies behavioral changes [facility] Past Medical History Medical History (Updated 10/19/23 @ 13:03 by Alyson Rodarte APRN) Arthritis Cerebrovascular accident (10/25/22) Mild right sided weakness. Chronic anticoagulation Hypertension Irritable bowel syndrome Obstructive sleep apnea Does not wear CPAP. Paroxysmal atrial fibrillation Surgical History Surgical History (Updated 10/19/23 @ 13:03 by Alyson Rodarte APRN) History of cataract extraction History of colonoscopy History of esophagogastroduodenoscopy Family History Family History Mother Family history non-contributory Father Traffic vehicular accidental Sibling Breast cancer Social History Social History (Updated 10/18/23 @ 22:49 by Carmella Saldaña PA-C) Social History: Surrogate medical decision maker: Galen Shine, son. Code status: Full code. Smoking status: Never smoker Alcohol intake: current Drinks per week: 3 Alcohol use details: socially Substance use: never Substance use type: does not use Do You Feel Safe in your Home?: Yes Lack of Transportation: No Lack of Food: Never True Current Housing: I Have Housing Concerned About Future Housing: No Difficulty Paying Gas/Electric Bills: No Difficulty Paying for Meds: No Currently Unemployed: No Education: High School Diploma/GED Difficulty w/ Childcare or Family Care: No Spiritual care concerns: No Meds Home Medications and Allergies Home Medications Medication Instructions Recorded Confirmed Type lisinopril 10 mg tablet
[2023-10-19] MEDS: oxyBUTYnin CHLORIDE 5 MG TABLET PO (17:05)
[2023-10-19] MEDS: FERROUS SULFATE 325 MG TABLET DR PO (20:33)
[2023-10-19] MEDS: SOTALOL HCL 40 MG TABLET PO (20:35)
--- NOTE | 2023-10-19 21:41 | ECG_ITS ---
Measurements Intervals Lawrence Rate: 81 P: -41 NE: 158 QRS: -14 QRSD: 76 T: 10 QT: 364 QTc: 423 Interpretive Statements SINUS RHYTHM WITH SINUS ARRHYTHMIA COMPARED TO ECG 10/19/2023 13:39:52 SINUS RHYTHM NOW PRESENT SINUS ARRHYTHMIA NOW PRESENT Electronically Signed On 10-20-2023 12:31:12 [employer]MUNITION ASSEMBLY I LABORER by Kamla Holt M.D.
[2023-10-20] VITALS (25 sets, daily range): BP systolic 112–152; BP diastolic 71–88; PULSE 64–113; RESP 16–24; TEMP 36.8–37.6; O2SAT 90–100
--- NOTE | 2023-10-20 04:54 | PC.NURSE ---
Patient refusing bed alarm. Patient turns frequently in bed. Patient is alert and oriented x 4 and states she will call staff for assistance with ambulation.
--- NOTE | 2023-10-20 04:55 | PC.NURSE ---
Patient also refused SCD's d/t the frequent turning and getting twisted up in them.
[2023-10-20] MEDS: FERROUS SULFATE 325 MG TABLET DR PO ×2 (08:36→17:09)
[2023-10-20] MEDS: IRON SUCROSE COMPLEX 500 MG in SODIUM CHLORIDE 0.9% IV 250 ML 79 MG IVPB (08:36)
[2023-10-20] MEDS: SOTALOL HCL 40 MG TABLET PO ×2 (08:37→20:39)
[2023-10-20] MEDS: BENZONATATE 100 MG CAPSULE 200 MG PO ×3 (08:37→17:09)
[2023-10-20] MEDS: PANTOPRAZOLE 40 MG TABLET PO ×2 (08:37→17:10)
[2023-10-20] MEDS: oxyBUTYnin CHLORIDE 5 MG TABLET PO ×3 (08:37→17:10)
--- NOTE | 2023-10-20 08:54 | PM.PNCARD ---
Progress Note: A&P Assessment and Plan (1) Paroxysmal atrial fibrillation: Code(s): I48.0 - Paroxysmal atrial fibrillation Status: Acute Assessment and Plan: This is a 73-year-old lady with a history of paroxysmal atrial fibrillation. In the setting of profound anemia she was hospitalized here and did have an episode of AF with RVR. She was placed on sotalol and converted to sinus rhythm, remains hospitalized for sotalol loading. Continue sotalol QTc 423, which is acceptable Continue to monitor on telemetry, no evidence of proarrhythmia thus far No a/c for the time being Outpatient referral for LAAO device Will continue to follow during her hospitalization Subjective Date/time seen: 10/20/23 08:54 Interval history: Cardiology follow up for atrial fibrillation Feeling well this morning and has no cardiovascular complaints. Remains in sinus rhythm. Review of Systems Constitutional: Constitutional: Reports lethargy Eyes: Eyes: Reports no additional eye complaints ENT: Reports system reviewed and no additional complaints, except as documented Cardiovascular: Cardiovascular: Reports no additional cardiovascular complaints Respiratory: Respiratory: Reports no additional respiratory complaints Musculoskeletal: Musculoskeletal: Reports no additional musculoskeletal complaints Integumentary/Breasts: Skin/Breast: Reports system reviewed and no additional complaints, except as docu Endocrine: Endocrine: Reports no additional endocrine complaints Hematologic/Lymphatic: Hematologic/Lymphatic: Reports no additional hematologic/lymphatic complaints Allergic/Immunologic: Allergic/Immunologic: Reports no additional allergic/immunologic complaints Exam Const: General: comfortable and no acute distress HENMT: Mouth: Yes moist mucous membranes Eyes: Sclera: sclerae normal Neck: Neck: supple and no JVD Resp: Effort & Inspection: normal respiratory effort Auscultation: clear to auscultation bilaterally Cardio: Rate: regular rate Rhythm: regular rhythm Other: No murmur no gallop GI: Auscultation: normal bowel sounds Skin: General skin exam: normal color Neuro: Other: Alert and oriented Extrem: Other: No edema, good distal pulses Objective Data Vital Signs Vital Signs: Vital Signs - 24 hr 10/19/23 09:23 10/19/23 10:00 10/19/23 11:11 Temperature 37.1 C Pulse Rate 117 H 119 H 128 H Respiratory Rate 22 H Blood Pressure 121/88 Pulse Oximetry 97 Oxygen Delivery 10/19/23 12:09 10/19/23 12:00 10/19/23 12:00 Temperature Pulse Rate 132 H 121 H Respiratory Rate Blood Pressure Pulse Oximetry Oxygen Delivery Room Air 10/19/23 15:55 10/19/23 14:00 10/19/23 16:00 Temperature 37.2 C Pulse Rate 80 128 H 78 Respiratory Rate 20 Blood Pressure 117/73 Pulse Oximetry 95 Oxygen Delivery 10/19/23 16:00 10/19/23 18:00 10/19/23 19:18 Temperature 36.7 C Pulse Rate 80 75 Respiratory Rate 18 Blood Pressure 147/94 H Pulse Oximetry 95 Oxygen Delivery Room Air 10/19/23 19:18 10/19/23 19:22 10/19/23 20:00 Temperature Pulse Rate 81 79 79 Respiratory Rate 18 20 20 Blood Pressure 131/93 H 142/87 H Pulse Oximetry 95 100 100 Oxygen Delivery Room Air 10/19/23 20:35 10/19/23 23:00 10/20/23 00:00 Temperature 36.7 C Pulse Rate 81 73 73 Respiratory Rate 18 18 Blood Pressure 102/59 L Pulse Oximetry 96 96 Oxygen Delivery Room Air 10/19/23 20:00 10/19/23 22:00 10/20/23 00:00 Temperature Pulse Rate 76 82 76 Respiratory Rate Blood Pressure Pulse Oximetry Oxygen Delivery 10/20/23 02:00 10/20/23 04:00 10/20/23 04:00 Temperature Pulse Rate 76 76 69 Respiratory Rate 18 Blood Pressure Pulse Oximetry 96 Oxygen Delivery Room Air 10/20/23 05:10 10/20/23 06:01 10/20/23 07:51 Temperature 36.9 C 36.8 C Pulse Rate 70 72 76 Respiratory Rate 16 18 Bloo
[2023-10-20] MEDS: LACTATED RINGERS 1,000 ML 150 ML IV CONT (10:32)
--- NOTE | 2023-10-20 10:40 | WPDANESEPPF ---
Anes - Initial Pre Proc Eval Procedure: Operation Date: 10/20/23 15:30 Proposed Procedures p Esophagogastroduodenoscopy - Prudencio Vieira MD Date/Time: 10/20/23 10:40 Surgeon: Nicholas Styles MD Pre Op Diagnosis: Anemia Patient Data Age: 73 Gender: F Height: 1.69 m Weight: 69.7 kg Last Vital Signs Temp 37.6 C H 10/20/23 10:20 Pulse 64 10/20/23 10:20 Resp 18 10/20/23 10:20 BP 152/88 H 10/20/23 10:20 Pulse Ox 96 10/20/23 10:20 O2 Del Method Room Air 10/20/23 10:20 Allergies Allergy/AdvReac Type Severity Reaction Status Date / Time No Known Allergies Allergy Verified 10/20/23 10:26 Home Medications Medication Instructions Recorded Confirmed Type lisinopril 10 mg tablet 10 mg PO DAILY 09/22/19 10/20/23 History apixaban 2.5 mg tablet (Eliquis) 2.5 mg PO BID 03/12/23 10/20/23 History atenolol 25 mg tablet 25 mg PO DAILY 03/12/23 10/20/23 History colestipol 1 gram tablet 1 g PO 1700 10/18/23 10/20/23 History pantoprazole 40 mg tablet,delayed 40 mg PO DAILY 10/18/23 10/20/23 History release vibegron 75 mg tablet (Gemtesa) 75 mg PO HS 10/18/23 10/20/23 History zolpidem 5 mg tablet 5 mg PO HS 10/18/23 10/20/23 History hydrochlorothiazide 12.5 mg capsule 12.5 mg PO DAILY 10/19/23 10/20/23 History Laboratory Tests 10/19/23 08:53 Hepatitis A IgM Ab Negative (Negative) Hep Bs Antigen Negative (Negative) Hep B Core IgM Ab Negative (Negative) Hepatitis C Ab Screen Reactive (Negative) HCV RNA (PCR) IUs/ml Pending HCV RNA PCR log IUs/ml Pending Patient hx anesthesia problems: none Family hx anesthesia problems: none Results Review: All pre-operative results and documents have been reviewed as part of the pre-operative evaluation. [facility] Past Medical History Medical History Arthritis Cerebrovascular accident (10/25/22) Mild right sided weakness. Chronic anticoagulation Hypertension Irritable bowel syndrome Obstructive sleep apnea Does not wear CPAP. Paroxysmal atrial fibrillation Surgical History Surgical History History of cataract extraction History of colonoscopy History of esophagogastroduodenoscopy Family History Family History Mother Family history non-contributory Father Traffic vehicular accidental Sibling Breast cancer Social History Social History Social History: Surrogate medical decision maker: Galen Shine, son. Code status: Full code. Smoking status: Never smoker Alcohol intake: current Drinks per week: 3 Alcohol use details: socially Substance use: never Substance use type: does not use Do You Feel Safe in your Home?: Yes Lack of Transportation: No Lack of Food: Never True Current Housing: I Have Housing Concerned About Future Housing: No Difficulty Paying Gas/Electric Bills: No Difficulty Paying for Meds: No Currently Unemployed: No Education: High School Diploma/GED Difficulty w/ Childcare or Family Care: No Spiritual care concerns: No Anes - Eval Final PreProcedure Day of Procedure 10/20/23 10:40 Patient weight: normal Heart: regular rate and rhythm Lungs: clear to auscultation Airway: Mallampati scale class II Neurological: alert and oriented Last oral intake: >/= 8 hours ASA classification: III Emergent: no Anesthetic plan: proceed Anesthesia type and monitoring: general GIVS and standard monitoring Results Review: All pre-operative results and documents have been reviewed as part of the pre-operative evaluation. Informed Consent: The patient's anesthetic plan and its attendant risks and benefits were discussed with the patient/family/POA. Questions were solicited and answers provided to the satisfacti
--- NOTE | 2023-10-20 10:45 | ECG_ITS ---
Measurements Intervals [place] Rate: 65 P: -19 AL: 164 QRS: -22 QRSD: 81 T: -2 QT: 381 QTc: 397 Interpretive Statements SINUS RHYTHM BORDERLINE LEFT AXIS DEVIATION [QRS AXIS < -20] OTHERWISE NORMAL ECG COMPARED TO ECG 10/19/2023 21:52:42 NO SIGNIFICANT CHANGES Electronically Signed On 10-20-2023 15:39:05 PERSONNEL GENERALIST MANAGER by Roger Mcqueen M.D.
--- NOTE | 2023-10-20 12:11 | P.PNIM_ITS ---
Progress Note: A&P Assessment and Plan (1) Anemia: Code(s): D64.9 - Anemia, unspecified Status: Acute (2) Elevated LFTs: Code(s): R79.89 - Other specified abnormal findings of blood chemistry Status: Acute (3) Paroxysmal atrial fibrillation: Code(s): I48.0 - Paroxysmal atrial fibrillation Status: Acute (4) Hypertension: Code(s): I10 - Essential (primary) hypertension Status: Acute (5) Congestive heart failure: Code(s): I50.9 - Heart failure, unspecified Status: Acute (6) Iron deficiency anemia: Code(s): D50.9 - Iron deficiency anemia, unspecified Status: Acute Plan Anemia * Does not appear to be active bleed but patient does take blood thinners for AFIB and TIA and previous HX of GI bleed * last colonoscopy 03/2023 IBS * hgb 4.6 POA * 3 units PRBC transfused now 8.0 * H&H q6hr * transfused 500mg Iron * PPI b.i.d. * Transfuse hgb <7.0 * GI and Hematology consulted 10/20: * EGD show esophagitis * continue with PPI * spoke with her Cardiologosist Dr. Hart he is aware she will need to stay of AC * Hgb stable today * continue with iron infusions Microcytic iron deficiency anemia * Iron panel * Iron TID * Hematology consult * In 500 mg IV * congestive heart failure New onset * Type to be determined following echocardiogram * BNP 1700 * chest x-ray: Pulmonary edema/bilateral small pleural effusion * No BLE edema but patient reports recent 10 LB weight gain * Likely secondary to patient's 3 units of PRBCs and IV fluids * 20 IV push Lasix given patient has had mild BP's will increase as BP can tolerate * cardiology consulted * monitor renal function during diuresis * previous echocardiogram results or if applicable: None at this facility but does follow with Dr. Hart with [facility] * echocardiogram pending * EKG Pending * Lipid panel, TSH, liver function test. * Optimize Pablo inhibitors, beta-blockers, ARNI * Daily weight. * monitor electrolytes during diuresis K+ >4.0/Mag >2.0 10/20: * lasix 40 daily as BP permits Paroxysmal AFIB * was on xarelto switched to eliquis for AFIB and previous CVA due to GI bleed with xarelto * Continuous cardiac monitoring * AC held due to anemia * cardiology consulted * HR was controlled on admission but having episodes of rated in the 120's switched her atenolol to metoprolol b.i.d. 25 mg 10/20: * Spoke with her web developer programmer patient will need to stay off of AC due to severe anemia Hx of GI bleed however since patient also has AFIB with recent ischemic stroke will need to follow-up O/P in 1 week to set up for left atrial appendage closure Transaminitis * Mildly elevated * US pending * hep panel C reactive AB/RNA pending HTN * Soft on admission * Switch patient's atenolol to metoprolol 25 mg b.i.d. * BP per unit protocol hypokalemia * 3.1 * Initiating Lasix will need to add daily dose * On continuous cardiac monitoring * PVCs noted with sinus tach sinus rhythm on admission * Magnesium 1.8 Code status: Full code per patient DVT prophylaxis: SCD's (Anemia) Stress ulcer prophylaxis: Protonix 40 BID PT/OT notes: PT/OT pending Disposition: Patient continues admission to IMU for further evaluation anemia with new onset CHF, GI, Hematology, Cardiology consultation for further recommendations patient does have history of atrial fibrillation and CVA was on a AC however will need to hold due to isidro
--- NOTE | 2023-10-20 12:11 | PM.IMPN ---
Progress Note: A&P Assessment and Plan (1) Anemia: Code(s): D64.9 - Anemia, unspecified Status: Acute (2) Elevated LFTs: Code(s): R79.89 - Other specified abnormal findings of blood chemistry Status: Acute (3) Paroxysmal atrial fibrillation: Code(s): I48.0 - Paroxysmal atrial fibrillation Status: Acute (4) Hypertension: Code(s): I10 - Essential (primary) hypertension Status: Acute (5) Congestive heart failure: Code(s): I50.9 - Heart failure, unspecified Status: Acute (6) Iron deficiency anemia: Code(s): D50.9 - Iron deficiency anemia, unspecified Status: Acute Plan Anemia Does not appear to be active bleed but patient does take blood thinners for AFIB and TIA and previous HX of GI bleed last colonoscopy 03/2023 IBS hgb 4.6 POA 3 units PRBC transfused now 8.0 H&H q6hr transfused 500mg Iron PPI b.i.d. Transfuse hgb <7.0 GI and Hematology consulted 10/20: EGD show esophagitis continue with PPI spoke with her Cardiologosist Dr. Hart he is aware she will need to stay of AC Hgb stable today continue with iron infusions Microcytic iron deficiency anemia Iron panel Iron TID Hematology consult In 500 mg IV congestive heart failure New onset Type to be determined following echocardiogram BNP 1700 chest x-ray: Pulmonary edema/bilateral small pleural effusion No BLE edema but patient reports recent 10 LB weight gain Likely secondary to patient's 3 units of PRBCs and IV fluids 20 IV push Lasix given patient has had mild BP's will increase as BP can tolerate cardiology consulted monitor renal function during diuresis previous echocardiogram results or if applicable: None at this facility but does follow with Dr. Hart with [facility] echocardiogram pending EKG Pending Lipid panel, TSH, liver function test. Optimize Pablo inhibitors, beta-blockers, ARNI Daily weight. monitor electrolytes during diuresis K+ >4.0/Mag >2.0 10/20: lasix 40 daily as BP permits Paroxysmal AFIB was on xarelto switched to eliquis for AFIB and previous CVA due to GI bleed with xarelto Continuous cardiac monitoring AC held due to anemia cardiology consulted HR was controlled on admission but having episodes of rated in the 120's switched her atenolol to metoprolol b.i.d. 25 mg 10/20: Spoke with her rn ent patient will need to stay off of AC due to severe anemia Hx of GI bleed however since patient also has AFIB with recent ischemic stroke will need to follow-up O/P in 1 week to set up for left atrial appendage closure Transaminitis Mildly elevated US pending hep panel C reactive AB/RNA pending HTN Soft on admission Switch patient's atenolol to metoprolol 25 mg b.i.d. BP per unit protocol hypokalemia 3.1 Initiating Lasix will need to add daily dose On continuous cardiac monitoring PVCs noted with sinus tach sinus rhythm on admission Magnesium 1.8 Code status: Full code per patient DVT prophylaxis: SCD's (Anemia) Stress ulcer prophylaxis: Protonix 40 BID PT/OT notes: PT/OT pending Disposition: Patient continues admission to IMU for further evaluation anemia with new onset CHF, GI, Hematology, Cardiology consultation for further recommendations patient does have history of atrial fibrillation and CVA was on a AC however will need to hold due to severe anemia. PT OT for evaluation for home health. Patient will need follow-up in 1 week with rn ent left atrial appendage closure will need to continue to hold PABLO discharge. Time Spent With Patient Time with patient: 25 - 35 minutes Subjective Date/time seen: 10/20/23 12:11 Interval history: H&P (Medical report) Chief Complaint: Dizziness and low blood pressure. Narrative: This is a 73-year-old female with history of stroke, hypertension, and paroxysmal atrial fibrillation on anticoagulation who presented to the e
[2023-10-20] MEDS: FUROSEMIDE INJ 40 MG/4 ML VIAL IV PUSH (12:46)
[2023-10-20] MEDS: COLESTIPOL HCL 1 GM TABLET PO (17:09)
[2023-10-20] MEDS: ACETAMINOPHEN 325 MG TABLET 650 MG PO (18:21)
--- NOTE | 2023-10-20 18:54 | PC.NURSE ---
Addendum entered by Kamla Tenorio RN 10/20/23 19:08: Patient transferred by bed with all belongings. Original Note: Nurse called report to receiving nurse Dasha at 1845. All questions asked and answered.
[2023-10-20 19:03] LABS: Hematocrit 27.5 % (37.0-47.0); Hemoglobin 8.4 g/dL (12.0-15.0); Mean Corpuscular HGB Conc 30.5 g/dl (32-36); Mean Corpuscular Hemoglobin 24.9 pg (26-34); Mean Corpuscular Volume 81.6 fl (80-100); Mean Platelet Volume 11.3 fl (7.4-10.4); Platelet Count Result 235 k/mm3 (150-375); Red Blood Count 3.37 M/mm3 (4.2-5.4); Red Cell Distribution Width 19.1 % (11.5-14.5); White Blood Count 5.8 K/mm3 (4.5-10.0)
--- NOTE | 2023-10-20 19:03 | PC.NURSE ---
This patient, Kaye Bolaños, was received from [facility] on 10/20/23 at 1904. Report received from Kamla BARROS. Patient/family oriented to unit policies and routines
[2023-10-20 19:16] LABS: Alanine Aminotransferase 62 U/L (6-35); Albumin Level 3.5 g/dL (3.5-5.1); Alkaline Phosphatase 50 U/L (38-126); Anion Gap 7 mmol/L (8-16); Aspartate Amino Transferase 78 U/L (14-36); Bilirubin,Total 0.7 mg/dL (0.2-1.3); Blood Urea Nitrogen 12 mg/dL (7-17); Calcium 9.2 mg/dL (8.4-10.2); Carbon Dioxide 25 mmol/L (22-30); Chloride 107 mmol/L (98-107); Estimated CRCL calculation 53 ml/min; Estimated Glomerular Filt Rate > 60; Glucose 120 mg/dL (65-110); Magnesium 1.9 mg/dL (1.6-2.3); Potassium 3.9 mmol/L (3.4-5.0); Sodium 139 mmol/L (137-145)
[2023-10-20] MEDS: ZOLPIDEM TARTRATE (*CRX) 5 MG TABLET PO (20:39)
--- NOTE | 2023-10-20 22:40 | ECG_ITS ---
Measurements Intervals [place] Rate: 69 P: -29 SC: 165 QRS: -18 QRSD: 81 T: 3 QT: 409 QTc: 439 Interpretive Statements SINUS RHYTHM COMPARED TO ECG 10/20/2023 13:04:31 NO SIGNIFICANT CHANGES Electronically Signed On 10-21-2023 16:27:18 BUTADIENE COMPRESSOR OPERATOR by Kristen Vaughn M.D.
[2023-10-21] VITALS (14 sets, daily range): BP systolic 127–155; BP diastolic 76–96; PULSE 59–80; RESP 14–20; TEMP 36.1–37.1; O2SAT 91–97
[2023-10-21 05:51] LABS: Hematocrit 26.6 % (37.0-47.0); Hemoglobin 8.2 g/dL (12.0-15.0); Mean Corpuscular HGB Conc 30.8 g/dl (32-36); Mean Corpuscular Hemoglobin 25.2 pg (26-34); Mean Corpuscular Volume 81.8 fl (80-100); Mean Platelet Volume 11.6 fl (7.4-10.4); Platelet Count Result 219 k/mm3 (150-375); Red Blood Count 3.25 M/mm3 (4.2-5.4); Red Cell Distribution Width 19.5 % (11.5-14.5); White Blood Count 5.9 K/mm3 (4.5-10.0)
[2023-10-21 06:03] LABS: Alanine Aminotransferase 66 U/L (6-35); Albumin Level 3.2 g/dL (3.5-5.1); Alkaline Phosphatase 54 U/L (38-126); Anion Gap 0 mmol/L (8-16); Aspartate Amino Transferase 74 U/L (14-36); Bilirubin,Total 0.6 mg/dL (0.2-1.3); Blood Urea Nitrogen 14 mg/dL (7-17); Calcium 9.2 mg/dL (8.4-10.2); Carbon Dioxide 29 mmol/L (22-30); Chloride 110 mmol/L (98-107); Estimated CRCL calculation 60 ml/min; Estimated Glomerular Filt Rate > 60; Glucose 104 mg/dL (65-110); Potassium 3.8 mmol/L (3.4-5.0); Sodium 139 mmol/L (137-145)
[2023-10-21] MEDS: FERROUS SULFATE 325 MG TABLET DR PO ×2 (08:11→16:33)
[2023-10-21] MEDS: BENZONATATE 100 MG CAPSULE 200 MG PO ×3 (08:11→16:33)
[2023-10-21] MEDS: FUROSEMIDE INJ 40 MG/4 ML VIAL IV PUSH (08:11)
[2023-10-21] MEDS: oxyBUTYnin CHLORIDE 5 MG TABLET PO ×3 (08:12→16:33)
[2023-10-21] MEDS: PANTOPRAZOLE 40 MG TABLET PO ×2 (08:12→16:33)
[2023-10-21] MEDS: SOTALOL HCL 40 MG TABLET PO ×2 (08:12→21:27)
--- NOTE | 2023-10-21 10:12 | ECG_ITS ---
Measurements Intervals [place] Rate: 74 P: -20 RI: 160 QRS: -25 QRSD: 78 T: -6 QT: 401 QTc: 447 Interpretive Statements SINUS RHYTHM WITH SINUS ARRHYTHMIA BORDERLINE LEFT AXIS DEVIATION [QRS AXIS < -20] COMPARED TO ECG 10/20/2023 22:48:28 SINUS ARRHYTHMIA NOW PRESENT Electronically Signed On 10-21-2023 16:37:27 GRAVITY PROSPECTING OPERATOR by Kristen Vaughn M.D.
--- NOTE | 2023-10-21 10:31 | P.PNIM_ITS ---
Progress Note: A&P Assessment and Plan (1) Paroxysmal atrial fibrillation with RVR: Code(s): I48.0 - Paroxysmal atrial fibrillation Status: Acute (2) Iron deficiency anemia: Code(s): D50.9 - Iron deficiency anemia, unspecified Status: Acute (3) Congestive heart failure: Code(s): I50.9 - Heart failure, unspecified Status: Acute (4) Irritable bowel syndrome: Code(s): K58.9 - Irritable bowel syndrome without diarrhea Status: Acute (5) Anemia: Code(s): D64.9 - Anemia, unspecified Status: Acute (6) Elevated LFTs: Code(s): R79.89 - Other specified abnormal findings of blood chemistry Status: Acute Plan Anemia * Does not appear to be active bleed but patient does take blood thinners for AFIB and TIA and previous HX of GI bleed * last colonoscopy 03/2023 IBS * hgb on arrival was 4.7, now 8.2 * H&H q6hr * PPI b.i.d. * Transfuse hgb <7.0 10/21: * EGD show esophagitis * continue with PPI * Per assembler fluorescent lights Dr. Hart he is aware she will need to stay off AC * Hgb stable today * continue with iron infusions Microcytic iron deficiency anemia Hgb is stable at 8.2 -continue daily BMP monitoring * congestive heart failure New onset * Severely dilated left atrium, trivial MR, atrial fibrillation * chest x-ray: Pulmonary edema/bilateral small pleural effusion * No BLE edema patient reports history of 10 LB weight gain * Daily weight. * monitor electrolytes 10/21: * P.r.n. p.o. Lasix Paroxysmal AFIB * was on xarelto switched to eliquis for AFIB and previous CVA due to GI bleed with xarelto * Continuous cardiac monitoring * AC held due to anemia * cardiology consulted * HR was controlled on admission but having episodes of rated in the 120's switched her atenolol to metoprolol b.i.d. 25 mg 10/21: * follow-up O/P in 1 week to set up for left atrial appendage closure Transaminitis * Mildly elevated * US pending * hep panel C reactive AB/RNA pending HTN * Soft on admission * Switch patient's atenolol to metoprolol 25 mg b.i.d. * BP per unit protocol hypokalemia resolved 3.8 Code status: Full code per patient DVT prophylaxis: SCD's (Anemia) Stress ulcer prophylaxis: Protonix 40 BID PT/OT notes: PT/OT pending Disposition: Patient continues admission for further evaluation anemia with new onset CHF, GI, Hematology and Cardiology, pt will need to have 5 doses of sotalol prior to being considered for dispo home, patient does have history of atrial fibrillation and CVA was on a AC however will need to hold due to severe anemia. PT OT for evaluation for home health. Patient will need follow-up in 1 week with assembler fluorescent lights left atrial appendage closure will need to continue to hold WENDI discharge. Subjective Date/time seen: 10/21/23 10:31 Interval history: Chief Complaint: Dizziness and low blood pressure. Narrative: This is a 73-year-old female with history of stroke, hypertension, and paroxysmal atrial fibrillation on anticoagulation who presented to the emergency department for evaluation of dizziness and low blood pressure. The patient provides the following history. She has not been feeling well for couple of weeks with vague symptoms including fatigue, generalized weakness, dry cough, and dizziness. Today she took her blood pressure and reports that it was in the 80s systolic and she came in for evaluation. On arrival to the ED her blood p ressure was 86/57. Labs wer
--- NOTE | 2023-10-21 10:31 | PM.IMPN ---
Progress Note: A&P Assessment and Plan (1) Paroxysmal atrial fibrillation with RVR: Code(s): I48.0 - Paroxysmal atrial fibrillation Status: Acute (2) Iron deficiency anemia: Code(s): D50.9 - Iron deficiency anemia, unspecified Status: Acute (3) Congestive heart failure: Code(s): I50.9 - Heart failure, unspecified Status: Acute (4) Irritable bowel syndrome: Code(s): K58.9 - Irritable bowel syndrome without diarrhea Status: Acute (5) Anemia: Code(s): D64.9 - Anemia, unspecified Status: Acute (6) Elevated LFTs: Code(s): R79.89 - Other specified abnormal findings of blood chemistry Status: Acute Plan Anemia Does not appear to be active bleed but patient does take blood thinners for AFIB and TIA and previous HX of GI bleed last colonoscopy 03/2023 IBS hgb on arrival was 4.7, now 8.2 H&H q6hr PPI b.i.d. Transfuse hgb <7.0 10/21: EGD show esophagitis continue with PPI Per aerodynamics professor Dr. Hart he is aware she will need to stay off AC Hgb stable today continue with iron infusions Microcytic iron deficiency anemia Hgb is stable at 8.2 -continue daily BMP monitoring congestive heart failure New onset Severely dilated left atrium, trivial MR, atrial fibrillation chest x-ray: Pulmonary edema/bilateral small pleural effusion No BLE edema patient reports history of 10 LB weight gain Daily weight. monitor electrolytes 10/21: P.r.n. p.o. Lasix Paroxysmal AFIB was on xarelto switched to eliquis for AFIB and previous CVA due to GI bleed with xarelto Continuous cardiac monitoring AC held due to anemia cardiology consulted HR was controlled on admission but having episodes of rated in the 120's switched her atenolol to metoprolol b.i.d. 25 mg 10/21: follow-up O/P in 1 week to set up for left atrial appendage closure Transaminitis Mildly elevated US pending hep panel C reactive AB/RNA pending HTN Soft on admission Switch patient's atenolol to metoprolol 25 mg b.i.d. BP per unit protocol hypokalemia resolved 3.8 Code status: Full code per patient DVT prophylaxis: SCD's (Anemia) Stress ulcer prophylaxis: Protonix 40 BID PT/OT notes: PT/OT pending Disposition: Patient continues admission for further evaluation anemia with new onset CHF, GI, Hematology and Cardiology, pt will need to have 5 doses of sotalol prior to being considered for dispo home, patient does have history of atrial fibrillation and CVA was on a AC however will need to hold due to severe anemia. PT OT for evaluation for home health. Patient will need follow-up in 1 week with aerodynamics professor left atrial appendage closure will need to continue to hold WENDI discharge. Subjective Date/time seen: 10/21/23 10:31 Interval history: Chief Complaint: Dizziness and low blood pressure. Narrative: This is a 73-year-old female with history of stroke, hypertension, and paroxysmal atrial fibrillation on anticoagulation who presented to the emergency department for evaluation of dizziness and low blood pressure. The patient provides the following history. She has not been feeling well for couple of weeks with vague symptoms including fatigue, generalized weakness, dry cough, and dizziness. Today she took her blood pressure and reports that it was in the 80s systolic and she came in for evaluation. On arrival to the ED her blood pressure was 86/57. Labs were significant for hemoglobin and hematocrit 4.7 and 17.7% respectively. Stool was Hemoccult negative on rectal exam per ED physician. Chest x-ray showed no acute findings and she tested negative for influenza, RSV, and COVID. 2 units packed red blood cells were ordered and she is being admitted in this setting for further workup and transfusion. With further questioning she mentions that she was hospitalized at [facility] a couple of months ago with dark stools at which time she
--- NOTE | 2023-10-21 11:28 | PM.PNCARD ---
Progress Note: A&P Assessment and Plan (1) Paroxysmal atrial fibrillation with RVR: Code(s): I48.0 - Paroxysmal atrial fibrillation Status: Acute Assessment and Plan: Started on Sotalol, received fourth dose this morning. QTc acceptable. Did have PAF with RVR overnight and this morning. If patient continues to have episodes of AFIB with RVR, will plan to increase dose of Sotalol to 80mg BID. Not a candidate for anticoagulation at this time. Patient to follow up with her primary utility tractor operator as an outpatient for consideration of left atrial appendage closure device. (2) Iron deficiency anemia: Code(s): D50.9 - Iron deficiency anemia, unspecified Status: Acute Assessment and Plan: Management as per primary team. (3) Congestive heart failure: Code(s): I50.9 - Heart failure, unspecified Status: Acute Assessment and Plan: Echocardiogram with normal LVEF. Did have signs of volume overload after getting blood transfusions and IVFs, and therefore, was started on IV Lasix. She overall looks euvolemic today, will stop IV Lasix. Can use Lasix as PRN. Do not anticipate her needing long-term Lasix therapy. Subjective Date/time seen: 10/21/23 11:28 Interval history: Reason for visit: Atrial fibrillation with RVR HPI: This is a 73-year-old lady I am seeing this afternoon with request of the hospitalist for assistance with the management of atrial fibrillation.? The consult order also indicates was consult for pleural effusions.? She is unknown to me prior to this encounter a she is a pleasant lady but appears in my pin to be an unreliable historian and is somewhat confused at times during history.? Fortunately there are family members in the room to assist with this.? She came to the emergency room here at [place] with complaints of generalized weakness and coughing which has been going on for the last several weeks.? She was found in the emergency room BP profoundly anemic with a hemoglobin of just over 4 g with microcytic indices and very low iron levels.? She was transfused packed red blood cells and also given intravenous iron.? She does not report any obvious overt bleeding at this time she says that a couple of months ago she was hospitalized and evaluated in [place] with some dark black stools and she was found to be anemic.? By her description GI evaluation was unrevealing at that time.? She has a cardiac history compatible with atrial fibrillation for which she sees a utility tractor operator elsewhere.? She was treated with a 10 will wall and anticoagulation according to the records at times she has been both on Xarelto and and on apixaban as well.? There is significant confusion at this time is to which drug she is taking at the time of this admission but obviously because of the profound anemia they are discontinued.? When she came to the hospital she was in sinus rhythm and she had an episode of AFib with RVR earlier this morning with which she was asymptomatic she was given some oral metoprolol and is back in sinus rhythm again now.? There are records from her outside utility tractor operator that demonstrated her evaluation included an echocardiogram last year that was essentially unremarkable.? There is no other cardiac history besides the atrial fibrillation that anyone in the family can recall. Date of service 10/21: Currently in sinus rhythm, however, did have PAF with RVR overnight and this morning. Patient with cough, otherwise feeling okay. Exam Const: General: comfortable and no acute distress HENMT: Mouth: Yes moist mucous membranes Eyes: General: appearance normal, both eyes and all related structures Sclera: sclerae normal Neck: Neck: supple Resp: Effort & Inspection: normal respiratory effort Cardio: Rate: regular rate Rhythm: regular rhythm Skin: General skin exam: normal color Neuro: Speech: normal speech Extrem: General: normal to inspection Psych: Mental Status: mental status aba
[2023-10-21] MEDS: ACETAMINOPHEN 325 MG TABLET 650 MG PO (12:36)
[2023-10-21 15:36] LABS: Hepatitis C RNA, Quant PCR <15 IU/mL
[2023-10-21] MEDS: COLESTIPOL HCL 1 GM TABLET PO (16:35)
--- NOTE | 2023-10-21 17:38 | WPDGIPROGNO ---
Progress Note: A&P Assessment and Plan (1) Gastritis: Code(s): K29.70 - Gastritis, unspecified, without bleeding Status: Acute Assessment and Plan: wonder if could explain part of anemia, no active bleeding continue with protonix bid (2) Iron deficiency anemia: Code(s): D50.9 - Iron deficiency anemia, unspecified Status: Acute Assessment and Plan: on iron and will need follow-up with hematology consider SB capsule endoscopy as outpatient is persistent anemia despite iron and ppi (3) Congestive heart failure: Code(s): I50.9 - Heart failure, unspecified Status: Acute (4) Symptomatic anemia: Code(s): D64.9 - Anemia, unspecified Status: Acute (5) Elevated LFTs: Code(s): R79.89 - Other specified abnormal findings of blood chemistry Status: Acute Assessment and Plan: probably elevated in setting of symptomatic anemia HCV reactive but RNA negative therefore she does not have HCV, no need of treatment she can follow-up in office if persistent elevation of lft Subjective Date/time seen: 10/21/23 17:38 Interval history: feeling better egd with gastritis but no active bleeding Review of Systems Review of Systems: All systems reviewed & are unremarkable except as noted in HPI and below Exam Const: General: comfortable and no acute distress HENMT: Mouth: Yes moist mucous membranes Eyes: General: appearance normal, both eyes and all related structures Sclera: sclerae normal Neck: Neck: supple Resp: Effort & Inspection: normal respiratory effort Cardio: Rate: regular rate Rhythm: regular rhythm GI: GI Palp: Yes Soft to palpation and No Tenderness to palpation present (GI) Auscultation: normal bowel sounds Skin: General skin exam: normal color Neuro: Speech: normal speech Motor exam (neuro): 5/5 motor strength present throughout Extrem: General: normal to inspection Psych: Mental Status: mental status grossly normal Affect: normal affect Objective Data Vital Signs Vital Signs: Vital Signs - 24 hr 10/20/23 20:39 10/20/23 20:00 10/20/23 20:00 Temperature Pulse Rate 71 78 Respiratory Rate Blood Pressure Pulse Oximetry Oxygen Delivery Room Air 10/20/23 20:00 10/20/23 21:13 10/20/23 21:09 Temperature 98.2 F 98.2 F 98.2 F Pulse Rate 73 73 72 Respiratory Rate 18 18 18 Blood Pressure 136/73 136/73 135/84 Pulse Oximetry 95 95 95 Oxygen Delivery 10/20/23 21:11 10/21/23 00:00 10/21/23 03:59 Temperature 98.2 F 96.9 F L Pulse Rate 73 74 59 L Respiratory Rate 18 20 Blood Pressure 131/79 133/76 Pulse Oximetry 94 93 Oxygen Delivery 10/21/23 04:00 10/21/23 08:12 10/21/23 08:00 Temperature Pulse Rate 73 80 Respiratory Rate Blood Pressure Pulse Oximetry 93 Oxygen Delivery Room Air 10/21/23 08:00 10/21/23 08:55 10/21/23 08:55 Temperature 98.1 F Pulse Rate 68 Respiratory Rate 14 Blood Pressure 151/81 H 130/94 H 137/96 H Pulse Oximetry 96 Oxygen Delivery 10/21/23 09:07 10/21/23 08:00 10/21/23 12:00 Temperature Pulse Rate 71 72 Respiratory Rate Blood Pressure Pulse Oximetry Oxygen Delivery Room Air 10/21/23 14:00 10/21/23 16:00 Temperature 98.8 F Pulse Rate 79 75 Respiratory Rate 20 Blood Pressure 127/78 Pulse Oximetry 96 Oxygen Delivery Intake/Output Intake/Output: Intake & Output 10/18/23 10/19/23 10/20/23 10/21/23 23:59 23:59 23:59 23:59 Intake Total 2900 2320 50 1330 Output Total 900 400 Balance 2900 1420 -350 1330 Meds/Results Medications: Active Medications Generic Name Dose Route Start Last Admin Trade Name Freq PRN Reason Stop Dose Admin Acetaminophen 650 mg 10/18/23 22:53 10/21/23 12:36 Acetaminophen 325 Mg Tablet PO 650 mg Q6H PRN Administration Mild Pain (1-3) or Fever Benzonatate 200 mg 10/19/23 10:20 10/21/23 16:33 Benzonatate 100 Mg Capsule PO 200 m
[2023-10-21] MEDS: ZOLPIDEM TARTRATE (*CRX) 5 MG TABLET PO (21:28)
--- NOTE | 2023-10-21 23:15 | ECG_ITS ---
Measurements Intervals [place] Rate: 70 P: -23 NM: 173 QRS: -20 QRSD: 86 T: 7 QT: 409 QTc: 443 Interpretive Statements SINUS RHYTHM COMPARED TO ECG 10/21/2023 10:19:30 NO SIGNIFICANT CHANGES Electronically Signed On 10-22-2023 15:40:27 VISITOR SERVICES ASSOCIATE by Kristen Vaughn M.D.
[2023-10-22] VITALS (11 sets, daily range): BP systolic 123–151; BP diastolic 76–94; PULSE 66–79; RESP 18–20; TEMP 36.6–37.3; O2SAT 95–96
[2023-10-22 05:38] LABS: Hematocrit 29.9 % (37.0-47.0); Hemoglobin 8.9 g/dL (12.0-15.0); Mean Corpuscular HGB Conc 29.8 g/dl (32-36); Mean Corpuscular Hemoglobin 24.9 pg (26-34); Mean Corpuscular Volume 83.5 fl (80-100); Platelet Count Result 256 k/mm3 (150-375); Red Blood Count 3.58 M/mm3 (4.2-5.4); Red Cell Distribution Width 21.4 % (11.5-14.5)
[2023-10-22 05:57] LABS: Alanine Aminotransferase 62 U/L (6-35); Albumin Level 3.5 g/dL (3.5-5.1); Alkaline Phosphatase 57 U/L (38-126); Anion Gap 5 mmol/L (8-16); Aspartate Amino Transferase 78 U/L (14-36); Bilirubin,Total 0.6 mg/dL (0.2-1.3); Blood Urea Nitrogen 14 mg/dL (7-17); Calcium 9.2 mg/dL (8.4-10.2); Carbon Dioxide 25 mmol/L (22-30); Chloride 107 mmol/L (98-107); Estimated CRCL calculation 60 ml/min; Estimated Glomerular Filt Rate > 60; Glucose 104 mg/dL (65-110); Potassium 3.9 mmol/L (3.4-5.0); Sodium 137 mmol/L (137-145)
[2023-10-22] MEDS: BENZONATATE 100 MG CAPSULE 200 MG PO ×2 (08:00→14:07)
[2023-10-22] MEDS: FERROUS SULFATE 325 MG TABLET DR PO (08:00)
[2023-10-22] MEDS: SOTALOL HCL 40 MG TABLET PO (08:01)
[2023-10-22] MEDS: PANTOPRAZOLE 40 MG TABLET PO (08:01)
[2023-10-22] MEDS: oxyBUTYnin CHLORIDE 5 MG TABLET PO ×2 (08:01→14:07)
--- NOTE | 2023-10-22 10:16 | PM.DS ---
DS: Admitting Diagnosis Discharge Date 10/22/2023 Admitting Diagnosis Symptomatic anemia DS: Discharge Diagnosis Discharge Diagnosis (1) Gastritis: Code(s): K29.70 - Gastritis, unspecified, without bleeding Status: Acute (2) Paroxysmal atrial fibrillation with RVR: Code(s): I48.0 - Paroxysmal atrial fibrillation Status: Acute (3) Iron deficiency anemia: Code(s): D50.9 - Iron deficiency anemia, unspecified Status: Acute (4) Congestive heart failure: Code(s): I50.9 - Heart failure, unspecified Status: Acute (5) Anemia: Code(s): D64.9 - Anemia, unspecified Status: Acute (6) Elevated LFTs: Code(s): R79.89 - Other specified abnormal findings of blood chemistry Status: Acute (7) Symptomatic anemia: Code(s): D64.9 - Anemia, unspecified Status: Acute (8) Hypertension: Code(s): I10 - Essential (primary) hypertension Status: Acute (9) Extravasation injury of IV catheter site with other complication: Code(s): T82.898A - Other specified complication of vascular prosthetic devices, implants and grafts, initial encounter Status: Acute Plan Started on Sotalol while inpatient, received fifth dose last night. QTc acceptable (443 msec this a.m.) -Continue sotalol 40mg b.i.d. -Outpatient referral for LAAO device -OK for discharge today DS: Summary Hospital Course Reason for hospitalization: This is a 73-year-old female with history of stroke, hypertension, and paroxysmal atrial fibrillation on anticoagulation who presented to the emergency department for evaluation of dizziness and low blood pressure.? Hospital Course: The patient provides the following history. She has not been feeling well for couple of weeks with vague symptoms including fatigue, generalized weakness, dry cough, and dizziness. Today she took her blood pressure and reports that it was in the 80s systolic and she came in for evaluation. On arrival to the ED her blood pressure was 86/57. Labs were significant for hemoglobin and hematocrit 4.7 and 17.7% respectively. Stool was Hemoccult negative on rectal exam per ED physician. Chest x-ray showed no acute findings and she tested negative for influenza, RSV, and COVID. 2 units packed red blood cells were ordered and she is being admitted in this setting for further workup and transfusion. With further questioning she mentions that she was hospitalized at [facility] in [place] a couple of months ago with dark stools at which time she had upper and lower endoscopy which were apparently unrevealing. She had previously been on Eliquis and was transition to Xarelto and her stool seemed to have cleared up. She has not noticed any blood in her stool and she specifically denies epigastric and abdominal pain, bloating, belching, hematemesis, melena, hematochezia, and hematuria. She also denies NSAID use. 10/19:? Patient resting in bed with complaints of cough, generalized weakness, and fatigue.? Patient was transfused 3 units PRBC after hgb was 4.6 now 8.0.? Patient is on blood thinner for paroxysmal AFIB and previous TIA.? Patient reports new onset cough CT chest reveled pulmonary edema with bilateral pleural effusion and BNP 1700 likely secondary to fluid overload from administration of PRBC and IV fluids.? Patient denies any HX of CHF however with history and afib and HTN this is likely new diagnoses, ECHO is pending for further evaluation, gave 20 IV lasix due to softer BP's will increase as BP tolerates. Patient was SR on admission but is have episodes of STACH 120's with PVC's will get EKG since patient does have history of AFIB, started patient on metoprolol 25 mg b.i.d. for rate control.? Currently AC is being held do to anemia GI and hematology have been consulted patient does appear to have severe microcytic iron deficiency anemia transfused 1 unit 500mg of iron and will start Iron PO.? ALT/AST mildly elevated hep panel ordered and p
--- NOTE | 2023-10-22 13:36 | PM.PNCARD ---
Progress Note: A&P Assessment and Plan (1) Paroxysmal atrial fibrillation with RVR: Code(s): I48.0 - Paroxysmal atrial fibrillation Status: Acute Assessment and Plan: Started on Sotalol, received fifth dose last night. QTc acceptable (443 msec this a.m.) -Continue sotalol 40mg b.i.d. -Outpatient referral for LAAO device -OK for discharge today (2) Iron deficiency anemia: Code(s): D50.9 - Iron deficiency anemia, unspecified Status: Acute Assessment and Plan: Management as per primary team. (3) Congestive heart failure: Code(s): I50.9 - Heart failure, unspecified Status: Acute Assessment and Plan: Echocardiogram with normal LVEF. Did have signs of volume overload after getting blood transfusions and IVFs, and therefore, was started on IV Lasix. She overall looks euvolemic today. Can use Lasix as PRN. Do not anticipate her needing long-term Lasix therapy. Subjective Date/time seen: 10/22/23 13:36 Interval history: Reason for visit: Atrial fibrillation with RVR HPI: This is a 73-year-old lady I am seeing this afternoon with request of the hospitalist for assistance with the management of atrial fibrillation.? The consult order also indicates was consult for pleural effusions.? She is unknown to me prior to this encounter a she is a pleasant lady but appears in my pin to be an unreliable historian and is somewhat confused at times during history.? Fortunately there are family members in the room to assist with this.? She came to the emergency room here at [facility] with complaints of generalized weakness and coughing which has been going on for the last several weeks.? She was found in the emergency room BP profoundly anemic with a hemoglobin of just over 4 g with microcytic indices and very low iron levels.? She was transfused packed red blood cells and also given intravenous iron.? She does not report any obvious overt bleeding at this time she says that a couple of months ago she was hospitalized and evaluated in [place] with some dark black stools and she was found to be anemic.? By her description GI evaluation was unrevealing at that time.? She has a cardiac history compatible with atrial fibrillation for which she sees a sodium methylate operator elsewhere.? She was treated with a 10 will wall and anticoagulation according to the records at times she has been both on Xarelto and and on apixaban as well.? There is significant confusion at this time is to which drug she is taking at the time of this admission but obviously because of the profound anemia they are discontinued.? When she came to the hospital she was in sinus rhythm and she had an episode of AFib with RVR earlier this morning with which she was asymptomatic she was given some oral metoprolol and is back in sinus rhythm again now.? There are records from her outside sodium methylate operator that demonstrated her evaluation included an echocardiogram last year that was essentially unremarkable.? There is no other cardiac history besides the atrial fibrillation that anyone in the family can recall. Date of service 10/21: Currently in sinus rhythm, however, did have PAF with RVR overnight and this morning. Patient with cough, otherwise feeling okay. Date of service : Has not had any RVR for 24 hours at this point. In sinus rhythm/sinus rhythm with PAC's. No further atrial fibrillation noted. Review of Systems Constitutional: Constitutional: Reports lethargy Eyes: Eyes: Reports no additional eye complaints ENT: Reports system reviewed and no additional complaints, except as documented Cardiovascular: Cardiovascular: Reports no additional cardiovascular complaints Respiratory: Respiratory: Reports no additional respiratory complaints Musculoskeletal: Musculoskeletal: Reports no additional musculoskeletal complaints Integumentary/Breasts: Skin/Breast: Reports system reviewed and no additional complaints, except as docu Endocrine: Endocri
--- NOTE | 2023-10-22 14:40 | PC.NURSE ---
Went to remove is since patient was going home and patient stated that she took he rown iv out earlier. Right and left arms are red, warm, and hard from previos iv sites. Arianna Junior notified of these finding prior to discharge.
--- NOTE | 2023-10-22 16:55 | PC.NURSE ---
Pablo wraps applied to bilateral arms prior to discharge.
[2023-10-24 10:03] LABS: Haptoglobin 107 mg/dL (43-212)
== END 2023-10-22 18:24 | disposition home health service (06) | DRG 812 ==
LOC: ANHED 16:39 → ANHIMU 18:20 → ANH2MED 10-20 18:55
PROVIDERS: Internal Medicine Gastroenterology; Nurse Practitioner; Nurse Practitioner Family; Physician Assistant; Admitting Provider Family Medicine; Emergency Provider Emergency Medicine; PCP Nurse Practitioner Family; Visit Provider Nurse Practitioner
PROC: 0DJ08ZZ Inspection of Upper Intestinal Tract, Via Natural or Artificial Opening Endoscopic (ICD-10-PCS; CPT 43235; principal; 2023-10-20 15:30)
DX: D50.9 Iron deficiency anemia, unspecified (principal); I69.351 Hemiplegia and hemiparesis following cerebral infarction affecting right dominant side; E87.71 Transfusion associated circulatory overload; I48.0 Paroxysmal atrial fibrillation; I10 Essential (primary) hypertension; E87.6 Hypokalemia; K29.70 Gastritis, unspecified, without bleeding; K57.10 Diverticulosis of small intestine without perforation or abscess without bleeding; R79.89 Other specified abnormal findings of blood chemistry; Z20.822 Contact with and (suspected) exposure to COVID-19; Z79.01 Long term (current) use of anticoagulants
CPT/HCPCS: 36415; 36430; 71045; 71260; 74177; 80053; 80074; 81001; 81003; 82607; 82728; 82746; 83010; 83540; 83550; 83615; 83735; 83880; 85014; 85018; 85025; 85027; 85046; 86850; 86900; 86901; 86923; 87522; 87637; 88305; 88342; 93005; 93306; 96360; 96361; 96374; 96375; 97161; 97165; 99285; A9270; G0378; J1756; J1940; J2704; J3480; J7030; J7040; J7050; J7120; P9016; Q9967

== ENCOUNTER 2023-10-23 17:09 | Emergency (ER) | payer MEDICARE, MEDICAID, SELFPAY ==
[2023-10-23 17:23] VITALS: BP 144/90; PULSE 79; RESP 16; TEMP 37; O2SAT 100
--- NOTE | 2023-10-23 17:46 | ED.GENADULT ---
HPI - General Adult General Chief complaint: Extremity Problem,Nontraumatic Stated complaint: BILAT ARM PAIN Time Seen by Provider: 10/23/23 17:40 Source: patient, RN notes reviewed and old records reviewed Mode of arrival: ambulatory Limitations: no limitations History of Present Illness HPI narrative: 73-year-old female [facility] with complaint of a bilateral forearm pain, swelling, and erythema for 1 day. Patient is a poor historian. Patient endorses she was discharged from [facility] yesterday. Patient endorses she had bilateral IV access and then she had pain and discomfort to prior to discharge. Patient was advised at that time to be seen in [facility] if symptoms worsened. Pt history CVA, AFib, hypertension. Patient denies fever, myalgias, chills, nausea, vomiting , decreased range of motion. Patient endorses that she has treated at home with Tylenol and ice without much relief Related Data Home Medications Medication Instructions Recorded Confirmed lisinopril 10 mg tablet 10 mg PO DAILY 09/22/19 10/20/23 colestipol 1 gram tablet 1 g PO 1700 10/18/23 10/20/23 pantoprazole 40 mg tablet,delayed 40 mg PO DAILY 10/18/23 10/20/23 release vibegron 75 mg tablet (Gemtesa) 75 mg PO HS 10/18/23 10/20/23 zolpidem 5 mg tablet 5 mg PO HS 10/18/23 10/20/23 hydrochlorothiazide 12.5 mg capsule 12.5 mg PO DAILY 10/19/23 10/20/23 apixaban 5 mg tablet (Eliquis) mg 10/23/23 atorvastatin 80 mg tablet mg 10/23/23 Allergies Allergy/AdvReac Type Severity Reaction Status Date / Time prochlorperazine AdvReac Unknown Verified 10/23/23 18:00 [From Compazine] Review of Systems Review of Systems: All systems reviewed & are unremarkable except as noted in HPI and below Constitutional: Constitutional: Reports no additional constitutional complaints Eyes: Eyes: Reports no additional eye complaints ENT: Reports system reviewed and no additional complaints, except as documented Cardiovascular: Cardiovascular: Reports no additional cardiovascular complaints, Denies chest pain and Denies dyspnea Respiratory: Respiratory: Reports no additional respiratory complaints, Denies cough and Denies dyspnea Musculoskeletal: Musculoskeletal: Reports no additional musculoskeletal complaints Integumentary/Breasts: Skin/Breast: Reports erythema, Reports skin swelling and Reports wounds ( bilateral mid dorsal forearm) Neurologic: Reports system reviewed and no additional complaints, except as documented Psychiatric: Psychiatric: Reports no additional psychiatric complaints [facility] Past Medical History Medical History (Updated 10/23/23 @ 18:09 by Basilia Wong APRN) Arthritis Cerebrovascular accident (10/25/22) Mild right sided weakness. Chronic anticoagulation Gastritis Hypertension Irritable bowel syndrome Obstructive sleep apnea Does not wear CPAP. Paroxysmal atrial fibrillation Surgical History Surgical History History of cataract extraction History of colonoscopy History of esophagogastroduodenoscopy Family History Family History Mother Family history non-contributory Father Traffic vehicular accidental Sibling Breast cancer Social History Social History Social History: Surrogate medical decision maker: Galen Shine, son. Code status: Full code. Smoking status: Never smoker Alcohol intake: current Drinks per week: 3 Alcohol use details: socially Substance use: never Substance use type: does not use Do You Feel Safe in your Home?: Yes Lack of Transportation: No Lack of Food: Never True Current Housing: I Have Housing Concerned About Future Housing: No Difficulty Paying Gas/Electric Bills: No Difficulty Paying for Meds: No Currently Unemployed: No Education: High School D
== END 2023-10-23 18:05 | disposition short-term general hospital (02) ==
PROVIDERS: Emergency Provider Nurse Practitioner Family; PCP Nurse Practitioner Family
DX: L03.114 Cellulitis of left upper limb (principal); L03.113 Cellulitis of right upper limb; M19.90 Unspecified osteoarthritis, unspecified site; I10 Essential (primary) hypertension; G47.33 Obstructive sleep apnea (adult) (pediatric); Z91.199 Patient's noncompliance with other medical treatment and regimen due to unspecified reason; I48.0 Paroxysmal atrial fibrillation; I69.951 Hemiplegia and hemiparesis following unspecified cerebrovascular disease affecting right dominant side
CPT/HCPCS: 99212; G0463

== ENCOUNTER 2023-10-23 18:19 | Emergency (ER) | payer MEDICARE, MEDICAID, SELFPAY ==
[2023-10-23 19:19] VITALS: BP 131/82; PULSE 66; RESP 16; TEMP 37.1; O2SAT 98
[2023-10-23] MEDS: ACETAMINOPHEN 500 MG TABLET 1000 MG PO (21:55)
--- NOTE | 2023-10-23 22:00 | ED.GENADULT ---
HPI - General Adult General Chief complaint: Skin/Abscess/Foreign Body <Janusz Hays PA-C - Last Filed: 10/24/23 02:51> Stated complaint: Cellulitis <DONALDO John Last Filed: 10/24/23 02:51> Time Seen by Provider: 10/23/23 21:21 <DONALDO John Last Filed: 10/24/23 02:51> Source: patient <DONALDO John Last Filed: 10/24/23 02:51> Mode of arrival: ambulatory <DONALDO John Last Filed: 10/24/23 02:51> Limitations: no limitations <DONALDO John Last Filed: 10/24/23 02:51> History of Present Illness HPI narrative: This is a 73-year-old female who presents to the ED for chief complaint of bilateral lower arm swelling and redness. Reports she was just discharged yesterday from the hospital after being severely anemic and receiving multiple transfusions. States that the redness and swelling to the right arm is worse than the left. She reports it seems to be little bit worse compared to yesterday but overall has not changed much. States the area is very tender to touch. She was on Eliquis, however this was stopped when she needed blood products. She has not been restarted on Eliquis yet. Denies fevers, chills, nausea, vomiting, shortness of breath or chest pain. <DONALDO John Last Filed: 10/24/23 02:51> Related Data Home medications: Home Medications Medication Instructions Recorded Confirmed lisinopril 10 mg tablet 10 mg PO DAILY 09/22/19 10/20/23 colestipol 1 gram tablet 1 g PO 1700 10/18/23 10/20/23 pantoprazole 40 mg tablet,delayed 40 mg PO DAILY 10/18/23 10/20/23 release vibegron 75 mg tablet (Gemtesa) 75 mg PO HS 10/18/23 10/20/23 zolpidem 5 mg tablet 5 mg PO HS 10/18/23 10/20/23 hydrochlorothiazide 12.5 mg capsule 12.5 mg PO DAILY 10/19/23 10/20/23 apixaban 5 mg tablet (Eliquis) mg 10/23/23 atorvastatin 80 mg tablet mg 10/23/23 <Janusz Hays PA-C - Last Filed: 10/24/23 02:51> Allergies/adverse reactions: Allergies Allergy/AdvReac Type Severity Reaction Status Date / Time prochlorperazine AdvReac Unknown Verified 10/23/23 18:00 [From Compazine] <Janusz Hays PA-C - Last Filed: 10/24/23 02:51> Review of Systems Review of Systems: All systems as dictated in HPI <Janusz Hays PA-C - Last Filed: 10/24/23 02:51> [facility] Past Medical History Medical History: Medical History Arthritis Cerebrovascular accident (10/25/22) Mild right sided weakness. Chronic anticoagulation Gastritis Hypertension Irritable bowel syndrome Obstructive sleep apnea Does not wear CPAP. Paroxysmal atrial fibrillation <Janusz Hays PA-C - Last Filed: 10/24/23 02:51> Surgical History Surgical History: Surgical History History of cataract extraction History of colonoscopy History of esophagogastroduodenoscopy <Janusz Hays PA-C - Last Filed: 10/24/23 02:51> Family History Family History: Family History Mother Family history non-contributory Father Traffic vehicular accidental Sibling Breast cancer <Janusz Hays PA-C - Last Filed: 10/24/23 02:51> Social History Social History: Social History Social History: Surrogate medical decision maker: Galen Shine, son. Code status: Full code. Smoking status: Never smoker Alcohol intake: current Drinks per week: 3 Alcohol use details: socially Substance use: never Substance use type: does not use Do You Feel Safe in your Home?: Yes Lack of Transportation: No Lack of Food: Never True Current Housing: I Have Housing Concerned About Future Housing: No Difficulty Paying Gas/Electric Bills: No Difficulty Paying for Meds: No Currently Unemployed: No Education:
[2023-10-23 22:04] LABS: Basophils Percent Auto 0.5 % (0.2-1.2); Eosinophils Absolute Auto 0.1 K/mm3 (0-0.3); Eosinophils Percent Auto 1.2 % (0-4.4); Hematocrit 31.1 % (37.0-47.0); Hemoglobin 9.3 g/dL (12.0-15.0); Immature Granulocyte Absolute 0.03 K/mm3 (0.00-0.031); Immature Granulocyte Percent A 0.4 % (0-0.5); Lymphocytes Absolute Auto 1.49 K/mm3 (0.9-3.2); Mean Corpuscular HGB Conc 29.9 g/dl (32-36); Mean Corpuscular Hemoglobin 25.9 pg (26-34); Mean Corpuscular Volume 86.6 fl (80-100); Mean Platelet Volume 10.3 fl (7.4-10.4); Monocytes Percent Auto 13.6 % (2.6-8.5); Neutrophils Absolute Auto 4.8 K/mm3 (1.3-6.7); Neutrophils Percent Auto 64.3 % (45.5-73.1); Platelet Count Result 249 k/mm3 (150-375); Red Blood Count 3.59 M/mm3 (4.2-5.4); Red Cell Distribution Width 23.7 % (11.5-14.5); White Blood Count 7.4 K/mm3 (4.5-10.0)
[2023-10-23 22:14] LABS: Prothrombin Time 13.3 Seconds (11.1-14.7)
[2023-10-23 22:15] LABS: Lactic Acid Reflex 1.6 mmol/L (0.7-2.0); Partial Thromboplastin Time 29.6 SECONDS (22.3-36.8)
[2023-10-23 22:17] LABS: Alanine Aminotransferase 61 U/L (6-35); Albumin Level 3.8 g/dL (3.5-5.1); Alkaline Phosphatase 57 U/L (38-126); Anion Gap 7 mmol/L (8-16); Aspartate Amino Transferase 69 U/L (14-36); Bilirubin,Total 0.8 mg/dL (0.2-1.3); Blood Urea Nitrogen 18 mg/dL (7-17); CRP < 0.5 mg/dL (<1.0); Calcium 9.2 mg/dL (8.4-10.2); Carbon Dioxide 23 mmol/L (22-30); Chloride 105 mmol/L (98-107); Estimated Glomerular Filt Rate > 60; Glucose 140 mg/dL (65-110); Potassium 3.7 mmol/L (3.4-5.0); Sodium 135 mmol/L (137-145)
[2023-10-23 22:19] LABS: Platelet Estimate Adequate (Adequate)
[2023-10-23 22:20] LABS: Anisocytosis 2+ (NORMAL); Ovalocytes 1+ (NORMAL); Poikilocytosis 1+ (NORMAL); Schistocytes None Seen (NORMAL)
[2023-10-23] MEDS: IBUPROFEN 400 MG TABLET PO (23:17)
[2023-10-23 23:18] VITALS: BP 130/78; PULSE 67; RESP 15; O2SAT 100
== END 2023-10-23 23:19 | disposition home or self-care (01) ==
PROVIDERS: Emergency Provider Physician Assistant; PCP Nurse Practitioner Family
DX: I80.9 Phlebitis and thrombophlebitis of unspecified site (principal); R22.33 Localized swelling, mass and lump, upper limb, bilateral; I10 Essential (primary) hypertension; I48.0 Paroxysmal atrial fibrillation; Z79.899 Other long term (current) drug therapy; Z79.01 Long term (current) use of anticoagulants; Z86.73 Personal history of transient ischemic attack (TIA), and cerebral infarction without residual deficits
CPT/HCPCS: 36415; 80053; 83605; 85025; 85610; 85730; 86140; 99283; A9270

== ENCOUNTER 2023-10-24 11:18 | Outpatient (CLI) | payer MEDICARE, MEDICAID, SELFPAY ==
--- NOTE | ~2023-10-24 | US_ITS ---
EXAMINATION: US venous doppler UE RT DATE: 10/24/2023 12:53 INDICATION: Right upper limb pain. TECHNIQUE: Grayscale ultrasound images without and with compression and Doppler ultrasound images of the right upper extremity veins were obtained. COMPARISON: None. FINDINGS: The visualized portions of the right internal jugular vein, subclavian vein, axillary vein, brachial veins, basilic vein, cephalic vein, and radial vein are patent. There is thrombus in the ulnar vein. IMPRESSION: 1. Deep vein thrombosis involving the right ulnar vein. Reviewed, dictated and finalized at location A. [facility]
== END 2023-10-24 11:19 | disposition home or self-care (01) ==
PROVIDERS: PCP Nurse Practitioner Family; Visit Provider Physician Assistant
DX: I82.621 Acute embolism and thrombosis of deep veins of right upper extremity (principal); M79.601 Pain in right arm
CPT/HCPCS: 93971

== ENCOUNTER 2023-10-24 15:12 | Emergency (ER) | payer MEDICARE, MEDICAID, SELFPAY ==
[2023-10-24 15:14] VITALS: BP 126/78; PULSE 70; RESP 18; TEMP 36.6; O2SAT 98
[2023-10-24 15:36] LABS: Basophils Percent Auto 0.6 % (0.2-1.2); Eosinophils Absolute Auto 0.2 K/mm3 (0-0.3); Eosinophils Percent Auto 2.8 % (0-4.4); Hematocrit 33.2 % (37.0-47.0); Hemoglobin 9.6 g/dL (12.0-15.0); Immature Granulocyte Absolute 0.03 K/mm3 (0.00-0.031); Immature Granulocyte Percent A 0.5 % (0-0.5); Lymphocytes Absolute Auto 1.38 K/mm3 (0.9-3.2); Lymphocytes Percent Auto 21.7 % (18.3-44.2); Mean Corpuscular HGB Conc 28.9 g/dl (32-36); Mean Corpuscular Hemoglobin 25.3 pg (26-34); Mean Corpuscular Volume 87.6 fl (80-100); Mean Platelet Volume 11.4 fl (7.4-10.4); Monocytes Absolute Auto 0.8 K/mm3 (0.1-0.6); Monocytes Percent Auto 12.6 % (2.6-8.5); Neutrophils Absolute Auto 3.9 K/mm3 (1.3-6.7); Neutrophils Percent Auto 61.8 % (45.5-73.1); Platelet Count Result 289 k/mm3 (150-375); Red Blood Count 3.79 M/mm3 (4.2-5.4); Red Cell Distribution Width 24.4 % (11.5-14.5); White Blood Count 6.4 K/mm3 (4.5-10.0)
[2023-10-24 15:47] LABS: Partial Thromboplastin Time 28.8 SECONDS (22.3-36.8); Prothrombin Time 13.2 Seconds (11.1-14.7)
[2023-10-24 15:49] LABS: Anion Gap 9 mmol/L (8-16); Blood Urea Nitrogen 18 mg/dL (7-17); Calcium 9.6 mg/dL (8.4-10.2); Carbon Dioxide 22 mmol/L (22-30); Chloride 108 mmol/L (98-107); Estimated CRCL calculation 59 ml/min; Estimated Glomerular Filt Rate > 60; Glucose 132 mg/dL (65-110); Potassium 3.7 mmol/L (3.4-5.0); Sodium 139 mmol/L (137-145)
[2023-10-24 15:57] LABS: Hypochromasia 1+ (NORMAL); Platelet Estimate Adequate (Adequate); Schistocytes None Seen (NORMAL)
[2023-10-24 15:58] LABS: Anisocytosis 3+ (NORMAL)
--- NOTE | 2023-10-24 16:48 | ED.UPPEXIN ---
HPI - Extremity Injury (Upper) General Chief Complaint: Extremity Injury, Upper <Olivia Teague PA-C - Last Filed: 10/24/23 18:54> Stated Complaint: dx with R arm blood clot <Olivia Teague PA-C - Last Filed: 10/24/23 18:54> Time Seen by Provider: 10/24/23 15:39 <Olivia Teague PA-C - Last Filed: 10/24/23 18:54> History of Present Illness HPI narrative: 73 y/o F with a history of CHF, paroxysmal AFib, hypertension reports for evaluation for a DVT in her right upper extremity. Patient was admitted on 10/18/2023 for symptomatic anemia with a hemoglobin of 4.7. Patient received a total of 3 blood transfusions while admitted and 500 mg of iron. She underwent an EGD on admission which showed showed evidence of gastritis without bleeding. She was started on a PPI. She reportedly had a recent colonoscopy at another institution and she had a negative Hemoccult in our ER. Patient was anticoagulated on Eliquis and then switched to Xarelto a few months ago after having reported dark tarry stools. She was anticoagulated for AFib and TIA. The decision was made on admission to discontinue anticoagulation given acute anemia in conjunction with patient's lottery clerk, Dr. Hart. The patient was advised to follow-up with her lottery clerk regarding new onset CHF and findings of a left atrial appendage with plans for closure. The patient notes that she had redness, warmth and pain to the site of her IV prior to discharge for the past couple of days. She was evaluated in our ER on 10/23/2023 with suspicion for phlebitis with an outpatient ultrasound ordered to evaluate for DVT. Patient was sent here by her PCP when she underwent a outpatient ultrasound today which showed evidence of a DVT involving the right ulnar vein. She denies chest pain or shortness of breath, lightheadedness or dizziness, syncope, fever. <Olivia Teague PA-C - Last Filed: 10/24/23 18:54> Related Data Home Medications: Home Medications Medication Instructions Recorded Confirmed lisinopril 10 mg tablet 10 mg PO DAILY 09/22/19 10/20/23 colestipol 1 gram tablet 1 g PO 1700 10/18/23 10/20/23 pantoprazole 40 mg tablet,delayed 40 mg PO DAILY 10/18/23 10/20/23 release vibegron 75 mg tablet (Gemtesa) 75 mg PO HS 10/18/23 10/20/23 zolpidem 5 mg tablet 5 mg PO HS 10/18/23 10/20/23 hydrochlorothiazide 12.5 mg capsule 12.5 mg PO DAILY 10/19/23 10/20/23 apixaban 5 mg tablet (Eliquis) mg 10/23/23 atorvastatin 80 mg tablet mg 10/23/23 <Olivia Teague PA-C - Last Filed: 10/24/23 18:54> Allergies/Adverse Reactions: Allergies Allergy/AdvReac Type Severity Reaction Status Date / Time prochlorperazine AdvReac Unknown Verified 10/23/23 18:00 [From Compazine] <Olivia Teague PA-C - Last Filed: 10/24/23 18:54> Review of Systems Review of Systems: CONSTITUTIONAL: Denies fever, chills, or sweats. EYES: Denies visual changes, redness, or discharge. ENT: Denies rhinorrhea, congestion, sore throat, or otalgia. CARDIOVASCULAR: Denies chest pain, palpitations, or edema. RESPIRATORY: Denies cough or dyspnea. GASTROINTESTINAL: Denies abdominal pain, nausea, vomiting, or diarrhea. GENITOURINARY: Denies dysuria or hematuria. SKIN: Denies rash or itching. MUSCULOSKELETAL: See HPI NEUROLOGIC: Denies headache, numbness, or weakness. PSYCHIATRIC: Denies anxiety or depression. <Olivia Teague PA-C - Last Filed: 10/24/23 18:54> [facility] Past Medical History Medical History: Medical History Arthritis Cerebrovascular accident (10/25/22) Mild right sided weakness. Chronic anticoagulation Gastritis Hypertension Irritable bowel syndrome Obstructive sleep apnea Does not wear CPAP. Paroxysmal atrial fibrillation <Olivia Teague PA-C - Last Filed: 10/24/23 18:54> Surgical History Surgical History: Surgical History (Reviewed 10/24/23 @ 17:49 by Olivia Rodríguez
[2023-10-24] MEDS: RIVAROXABAN 15 MG TABLET PO (18:31)
[2023-10-24 18:35] VITALS: BP 129/86; PULSE 71; RESP 18; O2SAT 98
== END 2023-10-24 18:36 | disposition home or self-care (01) ==
PROVIDERS: Emergency Medicine; Emergency Provider Physician Assistant; PCP Nurse Practitioner Family
DX: T80.1XXA Vascular complications following infusion, transfusion and therapeutic injection, initial encounter (principal); I82.621 Acute embolism and thrombosis of deep veins of right upper extremity; I69.951 Hemiplegia and hemiparesis following unspecified cerebrovascular disease affecting right dominant side; I48.0 Paroxysmal atrial fibrillation; I50.9 Heart failure, unspecified; I11.0 Hypertensive heart disease with heart failure; D64.9 Anemia, unspecified; G47.33 Obstructive sleep apnea (adult) (pediatric); K58.9 Irritable bowel syndrome, unspecified; M19.90 Unspecified osteoarthritis, unspecified site; Z98.49 Cataract extraction status, unspecified eye; Y84.8 Other medical procedures as the cause of abnormal reaction of the patient, or of later complication, without mention of misadventure at the time of the procedure
CPT/HCPCS: 36415; 80048; 85025; 85610; 85730; 93971; 99283; A9270

== ENCOUNTER 2025-07-10 10:00 | Outpatient (RCR) | payer MEDICARE, MEDICAID, SELFPAY ==
--- NOTE | 2025-05-03 10:17 | PCPTNOTE ---
pt arrived 20 minutes late to her evaluation, she went to the wrong location and was confused
--- NOTE | 2025-05-03 11:43 | OPREHPOC ---
Outpatient Therapy Plan of Care This is a Multidisciplinary Plan of Care that may contain components documented by all disciplines (PT, OT, and ST.) PT Problem 1 PT Problem #1 Knowledge Deficit PT Goal 1 Goal / Goal Update Patient/caregiver to demonstrate independence with HEP for improved self-reliance of symptom management. Target Visit 5 PT Problem 2 PT Problem #2 Impaired Balance PT Goal 1 Goal / Goal Update 1. Patient to improve outcome measure score on the Tinetti from 14 to 19 points or greater to improve fall risk from high to moderate to increase safety with mobility. 2. The patient will have improvement in R SLS to > =6 sec for decreased fall risk and improved SL stability. 3. The patient will have improvement in L SLS to > =6 sec for decreased fall risk and improved SL stability. 4. Patient to improve confidence and understanding of gait mechanics with SC to improve community navigation Target Visit 10 PT Problem 3 PT Problem #3 Impaired Strength PT Goal 1 Goal / Goal Update 1. Patient to perform 5xSTS from 28 sec to 20 sec with improved eccentric control to demonstrate an increase in B LE functional strength. 2. Patient to demonstrate SHAHNAZ hip strength >=4/5 for improved functional stability required for ADLs. Target Visit 10 PT Problem 4 PT Problem #4 Impaired Endurance PT Goal 1 Goal / Goal Update Patient to improve distance ambulated during 2MWT from 250 feet to 325 feet to demonstrate an improvement in gait speed. Target Visit 10
--- NOTE | 2025-05-03 11:43 | PTOPEVAL1 ---
Assessment and note entered by Mira Pichardo PT Evaluation Information Assessment Status Evaluation ICD-10 Condition Codes (PT) Difficulty Walking R26.2,Abnormalities of gait and mobility R26.9,Weakness R53.1 Subjective Information Pt presents to skilled PT with decreased balance and difficulty walking posing fall risk/safety risk. Pt has had issues with balance since suffering a CVA in September of 2322. She did therapy for a while but discontinued her HEP. She feels she walks slower than normal and feels unsteady. Pt has had 1 fall in the last year when trying to go to bed. It was too dark and she misjudged sitting on her bed, her daughter was able to get her up. Pt denies use of an AD. She went to the hospital for dehydration last month and was told by the PT there that a cane won't do her any good because she can't coordinate it right . Pt has trouble with car transfers/sit to stand/ standing/walking. She lives alone in an apartment with no stairs to enter or inside. She is independent with dressing and bathing but had to start buying slip on shoes. She can cook simple meals, family takes her to the grocery store. She has a blanker press operator there 2 hours a day 3 time a week to help with light cleaning/laundry. The pt relies on family or her blanker press operator for transportation. Reported Pain Level Pain Score 0: Self Report Assessment PT Clinical Summary Pt is a 75 year old female with h/o CVA with R sided deficits now presenting with increased difficulty walking. Pt demonstrates SHAHNAZ LE weakness, decreased mobility, decreased gait speed , decreased endurance, abnormal posture, gait deficit, and decreased flexibility that limit their ability to perform ADLs safely. Pt also scores 14/28 on the Tinetti demonstrating increased risk of falls as well as taking 28 seconds to complete the 5xSTS. Pt will benefit from skilled physical therapy to address the above listed deficits and return to PLOF. Pt also reports 65% disability on the LEFS and 45% confidence on the MFES. HEP instructed and written handout provided, EX tolerated well with no adverse effects to note post-session. Pt was educated on importance of adherence to HEP. Pt was also educated on anatomy, prognosis, safety, and PT POC. Plan of Care Interventions Aquatic Therapy,Gait Training,Hot Pack/Cold Pack, Manual Therapy,Neuro Re-education,Patient/ Caregiver Education,Therapeutic Activities, Therapeutic Exercise,Self-Care/Home Management PT Services Indicated Yes Treatment Frequency and 1-2x/wk for 10 sessions Duration These treatments will address the objective and functional deficits as defined above. The patient will be advanced safely and appropriately in order for the patient to progress towards his/her prior level of function. Additional exercises will be introduced and as well as a comprehensive home exercise program upon discharge, if needed, ?to ensure carryover of functional gains achieved in the clinic. This treatment plan has been reviewed and agreement upon by the patient.
--- NOTE | 2025-06-23 11:54 | PCPTNOTE ---
Pt canceled due to illness.
--- NOTE | 2025-07-10 10:53 | OPREHPOC ---
Outpatient Therapy Plan of Care This is a Multidisciplinary Plan of Care that may contain components documented by all disciplines (PT, OT, and ST.) PT Problem 1 PT Problem #1 Knowledge Deficit PT Goal 1 Goal / Goal Update Patient/caregiver to demonstrate independence with HEP for improved self-reliance of symptom management. 07-10-25 d/c goals met Target Visit 5 Progress Met PT Problem 2 PT Problem #2 Impaired Balance PT Goal 1 Goal / Goal Update 1. Patient to improve outcome measure score on the Tinetti from 14 to 19 points or greater to improve fall risk from high to moderate to increase safety with mobility. 2. The patient will have improvement in R SLS to > =6 sec for decreased fall risk and improved SL stability. 3. The patient will have improvement in L SLS to > =6 sec for decreased fall risk and improved SL stability. 4. Patient to improve confidence and understanding of gait mechanics with SC to improve community navigation 07-10-25 d/c goal 1 met; #4- pt did not want to use the cane Target Visit 10 Progress Partially Met PT Problem 3 PT Problem #3 Impaired Strength PT Goal 1 Goal / Goal Update 1. Patient to perform 5xSTS from 28 sec to 20 sec with improved eccentric control to demonstrate an increase in B LE functional strength. 2. Patient to demonstrate SHAHNAZ hip strength >=4/5 for improved functional stability required for ADLs. 07-10-25 d/c goals not met; #1 is 27 seconds with 1 UE use; # 2 partially met, L hip is 4/5 Target Visit 10 Progress Partially Met PT Problem 4 PT Problem #4 Impaired Endurance PT Goal 1 Goal / Goal Update Patient to improve distance ambulated during 2MWT from 250 feet to 325 feet to demonstrate an improvement in gait speed. 07-10-25 d/c goal not met, improved to 280' Target Visit 10 Progress Not Met
--- NOTE | 2025-07-10 10:53 | PTOPDC ---
Assessment and note entered by Daksha Cid, PT Assessment Status Discharge ICD-10 Condition Codes (PT) Difficulty Walking R26.2,Abnormalities of gait and mobility R26.9,Weakness R53.1 Subjective Information have not had any falls since coming for therapy; do not use the cane at all; helper at home does the house cleaning and drives her around; goes to store with her family or helped for groceries; walks slow and family complains that she cannot keep up with them; doing the exercises at home, but not good to do them every day. Reported Pain Level Pain Score 0: Self Report Assessment PT Clinical Summary Kaye has received 9 PT sessions. Compared to the initial evaluation: self assessment with the Modified Falls Efficacy Scale rating of confidence with mobility from 45 to 69%; Tintetti balance score from 14 to 20/28; 5 reps sit/stand transfer from with both UE's in 28 seconds to 1 UE use in 27 seconds; 2 minute walking test distance from 250' to 280'; education completed for HEP and mobility safety. The goals were partially met. She agrees to discharge PT and continue with the exercises at home. Discharge PT. Plan of Care PT Services Indicated No
== END 2025-07-10 12:59 | disposition home or self-care (01) ==
LOC: ANHPT 10:00
PROVIDERS: PCP Nurse Practitioner Family
DX: R53.1 Weakness (principal)
CPT/HCPCS: 97110; 97112; 97161; 97530